=== PATIENT | male | born 1960 | race Caucasian/White ===

== ENCOUNTER 2024-01-13 10:41 | Outpatient (REF) | payer MEDICAID, SELFPAY ==
[2024-01-13 14:28] LABS: MANUAL DIFF FLAG NO
[2024-01-13 14:35] LABS: Basophils Percent Auto 0.5 % (0-2); Eosinophils Absolute Auto 0.2 X10*3/uL (0.0-0.4); Eosinophils Percent Auto 2.9 % (0-4); Hematocrit 44.2 % (42.0-52.0); Hemoglobin 15.3 g/dl (14.0-18.0); Imm Gran Abs Auto 0.04 X10*3/uL (0.00-0.03); Imm Gran Pct Auto 0.5 % (0.0-0.4); Lymphocytes Absolute Auto 2.6 X10*3/uL (1.2-4.9); Lymphocytes Percent Auto 31.7 % (20-40); Mean Corpuscular HGB Conc 34.6 g/dl (31.0-36.0); Mean Corpuscular Hemoglobin 30.2 pg (27.0-33.0); Mean Corpuscular Volume 87.2 fL (80.0-98.0); Mean Platelet Volume 11.9 fL (9.4-12.4); Monocytes Absolute Auto 0.7 X10*3/uL (0.1-1.2); Monocytes Percent Auto 8.2 % (2-11); Neutrophils Absolute Auto 4.7 x10*3/uL (2.0-8.3); Neutrophils Percent Auto 56.2 % (45-73); Platelet Count 218 X10*3/uL (160-400); Red Blood Count 5.07 X10*6/uL (4.60-5.80); White Blood Count 8.3 X10*3/uL (4.8-10.8)
[2024-01-13 14:55] LABS: Alanine Aminotransferase 33 U/L (0-40); Albumin Level 4.1 g/dL (3.5-5.0); Alkaline Phosphatase 64 U/L (39-117); Anion Gap 10 (12-20); Aspartate Amino Transferase 34 U/L (5-37); Bilirubin Total 1.1 mg/dL (0.0-1.0); Blood Urea Nitrogen 15 mg/dL (9-16); Calcium 9.4 mg/dL (8.4-10.2); Carbon Dioxide 24 mmol/L (22-29); Chloride 107 mmol/L (96-108); Cholesterol 169 mg/dL (<200); Estimated Glomerular Filt Rate > 60; Glucose Random 87 mg/dL (60-115); HDL Cholesterol 32 mg/dL (>40); LDL Cholesterol Calculated 111 mg/dL (<100); Sodium 137 mmol/L (135-145); Total Protein 7.4 g/dL (6.5-8.0); Triglycerides 131 mg/dL (<150)
[2024-01-13 15:14] LABS: TSH reflex Free T4 2.43 uIU/mL (0.32-4.0)
[2024-01-14 04:14] LABS: ~HepC Num1 13.55 S/CO (0.00-0.79); ~Hepatitis C Antibody Reactive (Nonreactive)
[2024-01-16 15:14] LABS: HCV Log PCR 6.88 Log IU/mL (NOT DETECTED); HepC Viral Load 7500000 IU/mL (NOT DETECTED)
== END 2024-01-13 10:42 | disposition home or self-care (01) ==
LOC: HO.CHCLDS 10:41
PROVIDERS: Visit Provider Internal Medicine
DX: I10 Essential (primary) hypertension (principal)
CPT/HCPCS: 36415; 80053; 80061; 84443; 85025; 86803; 87522

== ENCOUNTER 2024-02-02 09:51 | Outpatient (REF) | payer MEDICAID, SELFPAY ==
[2024-02-02 14:58] LABS: INTERNATIONAL NORM RATIO 0.9 (0.9-1.1)
[2024-02-03 08:24] LABS: Hepatitis A Antibody IgG Nonreactive (Nonreactive); ~Hepatitis A Antibody IgG 0.56 S/CO (0.00-0.99)
[2024-02-03 08:33] LABS: HBS Num1 0.71 mIU/mL (0-7.99); HBc Num1 6.97 S/CO (0.00-0.79); Hepatitis B Surface Antigen Negative (Negative); ~Hepatitis B Surface Antibody NONREACTIVE (Nonreactive)
[2024-02-03 09:36] LABS: HBc Num2 6.95 S/CO; HBc Num3 7.03 S/CO; Hepatitis B Core Antibody Reactive (Nonreactive)
[2024-02-04 09:03] LABS: Hepatitis B Core Antibody IgM NON-REACTIVE (NON-REACTIVE)
[2024-02-07 10:02] LABS: Hepatitis C Genotype 1a
[2024-02-11 14:18] LABS: FIB-ALT 25 U/L (9-46); FIB-Alpha-2-Macroglobulin 266 mg/dL (106-279); FIB-Apolipoprotein A1 122 mg/dL (94-176); FIB-GGT 37 U/L (3-70); FIB-Haptoglobin 55 mg/dL (43-212); FIB-Total Bilirubin 0.7 mg/dL (0.2-1.2); Liver Fibrosis Score 0.68; Liver Fibrosis Stage F3; Nec Inflam Act Grade A0-A1; Nec Inflam Act Score 0.18; Reference ID 5232622
== END 2024-02-02 09:52 | disposition home or self-care (01) ==
LOC: HO.CHCLDS 09:51
PROVIDERS: Visit Provider Internal Medicine
DX: B18.2 Chronic viral hepatitis C (principal)
CPT/HCPCS: 36415; 81596; 85610; 86704; 86705; 86706; 86708; 87340; 87902

== ENCOUNTER 2024-02-08 13:14 | Outpatient (AMB) | payer MEDICAID, SELFPAY ==
--- NOTE | 2024-02-08 13:29 | A.OFFVIS_ITS ---
Vital Signs 02/08/24 13:38 Height 6 ft 3 in Weight 237 lb BMI 29.6 BP 136/90 H Blood Pressure Location Rt brachial Position Sitting Pulse 76 Intake Visit Reasons: epidermal cyst of back Intake Note: Patient referred by pcp Dr. Paiz for epidermal inclusion cyst on back and under lt jawline. Both present for 2yrs. Patient c/o: patient squeezed it in the past but grew back. 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 There each increasing in size, become more symptomatic. He would like to have them removed. He has no such lesions elsewhere. Chart was reviewed and patient evaluated [facility] Medical History (Updated 02/08/24 @ 13:36 by VANESA Franz) Anxiety Depression HTN (hypertension) Social History (Updated 02/08/24 @ 13:37 by VANESA Franz) Patient Tobacco Use Status: Current everyday Tobacco user Cigarettes Per Day: 1 Physical Exam Vital Signs: Last Vital Signs Pulse 76 02/08/24 13:38 BP 136/90 H 02/08/24 13:38 BMI result Body Mass Index 29.6 Neck Other: Patient has a roughly 3 x 2 cm left mid neck sebaceous cyst.. No other cervical periclavicular adenopathy. Chest Other: Chest breath sounds bilaterally, HS 1 in 2 GI Other: Abdomen corpulent, benign Back/Spine/Pelvis Other: Patient has a roughly 4 x 4 cm right mid back sebaceous cyst Assessment & Plan Assessment & Plan (1) Sebaceous cyst: Code(s): L72.3 - Sebaceous cyst Category: Surgical Plan Because of the size and location of these 2 sebaceous cysts, and recommendation is to have these excised in an ambulatory surgical setting. Risks, benefits, alternatives of sebaceous cyst excision x2 reviewed with the patient and included but not limited to bleeding, infection, recurrence, numbness, pain, scarring, seroma, wound dehiscence and the patient wished to proceed. All questions answered. Arrangements made for this. Coding Level of Care Code New Pt Level 5 (62988) Diagnoses Sebaceous cyst L72.3
[2024-02-08 13:38] VITALS: BP 136/90; PULSE 76; BMI 29.6
== END 2024-02-08 13:41 | disposition home or self-care (01) ==
PROVIDERS: PCP Internal Medicine; Visit Provider Surgery
DX: L72.3 Sebaceous cyst (principal)
CPT/HCPCS: 99204

== ENCOUNTER → 2024-02-08 13:14 | Outpatient (BNVA) | payer MEDICAID, SELFPAY | PROVIDERS: PCP Internal Medicine; Visit Provider Surgery | DX: L72.3 Sebaceous cyst (principal) | CPT/HCPCS: 99202 ==

== ENCOUNTER 2024-03-08 08:02 | Outpatient (REF) | payer MEDICAID, SELFPAY | END 2024-03-08 08:03 | disposition home or self-care (01) | LOC: HO.US 08:02 | PROVIDERS: PCP Internal Medicine; Visit Provider Internal Medicine | DX: B18.2 Chronic viral hepatitis C (principal) | CPT/HCPCS: 76700; 76981 ==

== ENCOUNTER → 2024-03-08 08:04 | Outpatient (BNV) | payer MEDICAID, SELFPAY | PROVIDERS: PCP Internal Medicine; Visit Provider Radiology Diagnostic Radiology | DX: K76.89 Other specified diseases of liver (principal); N20.0 Calculus of kidney | CPT/HCPCS: 76700 ==

== ENCOUNTER 2024-04-04 13:43 | Outpatient (REF) | payer MEDICAID, SELFPAY ==
--- OUTSIDE RECORDS SUMMARY | 2024-04-04 18:26 | XMS_ITS | Encounter Summary ---
Author Organization [employer] Address [address] [place] [address] Care Team Providers Care Commercial Lines Insurance Agent Name Role Phone Samuel Paiz MD Primary Care Provider [phone] Reason for Visit * Reason Onset Date Comments Hep C Management 03/25/2024 Encounter Details Date Type Department Care Team ([facility] st Contact Info) Description 03/25/2024 Telephone [facility] [address] [place] [address] Naresh Newsome, RN [address] [place] [address] Hep C Management Social History Tobacco Use Types Packs/Day Years Used Date Smoking Tobacco: Some Days Cigarettes Smokeless Tobacco: Never Comments:Few cigarettes ever y other day: 2 packs a month. Depression Answer Date Recorded Patient Health Questionnaire-9 Score 8 05/22/2022 Housing Stability Answer Date Recorded What is your housing situation today? I have janetartur huff 01/04/[address] you li ve. Do you have problems with any of the following? None of the above 01/04/2024 Food Insecurity Answer Date Recorded Within the past 12 months, y ou worried that your food would run out before you got money to buy more: Never True 01/04/2024 Within the past 12 months,th e food you bought just didn't last and you didn't have enough money to get more: Never True Transportation Answer Date Recorded In the past 12 months, has l ack of transportation kept you from medical appts, meetings, work or from getting things needed for daily living? No 01/04/2024 Utilities Answer Date Recorded In the past 12 months, has t he electric, gas, oil or water company threatened to shut off services in your home? No 01/04/2024 Depression Answer Date Recorded Patient Health Questionnaire-2 Score 1 01/13/2024 Internet Access Answer Date Recorded Internet Access Q1 Yes 01/04/2024 Internet Access Q2 Not on file 01/04/2024 Sex and Gender Information Value Date Recorded Sex Assigned at Male 01/06/2022 10:25 AM EDT Legal Sex Male 10:25 AM EDT Gender Identity Male 01/06/2022 10:25 AM EDT Sexual Orientation Straight 01/06/2022 10 :25 AM EDT documented as of this encounter Miscellaneous Notes * Telephone Encounter - Naresh Newsome RN - 03/25/2024 2:31 PM EST US results are back and Hep C labs mostly completed. Claire: could you please coordinate to do Hep C scientific affairs manager? It looks like pt still needs HIV ag/ab and Hep B VL (due to isolated core positive). Ordered them now. Since pt was F3 and needs in person visit with Dr. Perla, perhaps these last labs could be drawn at the same time that he comes in. J Luis, could you please have pharmacist complete med rec? Thank you! documented in this encounter Plan of Treatment Upcoming Encounters Date Type Department Care Team (Late st Contact Info) Description 05/05/2024 9:15 AM EST Office Visit [facility] [address] [place] [address] Samuel Paiz MD [address] [place] [address] Scheduled Orders Name Type Priority Associated Diagnoses Orde r Schedule HIV-1/2 Antigen and Antibodies, Fourth Generation, with Reflexes Lab Routine Chronic hepatitis C without hepatic coma (CMS/HCC) Expected: 03/25/2024 (Approximate), Expires: 03/25/2025 Hepatitis B Virus DNA, Quantitative, Real-Time PCR Lab Routine Chronic hepatitis C without hepatic coma (CMS/HCC) Expected: 03/25/2024 (Approximate), Expires: 03/25/2025 documented as of this encounter Visit Diagnoses Diagnosis Chronic hepatitis C without hepatic coma (CMS/HCC)- Primary documented in this encounter Additional Health Concerns Assessment Noted Time PHQ-9 Depression Total Score: 8 05/23/19 23 11:19 AM EDT documented as of this encounter Care Teams Commercial Lines Insurance Agent Relationship Specialty Start Date End Date Samuel Paiz MD [address] [place] [id number] PCP - General Internal Medicine 12/02/12 documented as of this encounter
--- OUTSIDE RECORDS SUMMARY | 2024-04-04 18:26 | XMS_ITS | Clinical Summary ---
Author Organization [employer] Address [address] [facility] [address] [place] [address] Care Team Providers Care Licensed Sales Assistant Name Role Phone Samuel Paiz MD Primary Care Provider [phone] Allergies Active Allergy Reactions Criticality Noted Date Comments Acetaminophen 02/08/2013 Other Reaction(s): UPSET STOMACH Codeine 02/08/2013 Other reaction(s): UPSET STOMACH Medications buPROPion XL (Wellbutrin XL) 150 MG 24 hr tablet Take 150 mg by mouth in the morning. 03/20/19 23 Active amLODIPine (Norvasc) 10 MG tablet TAKE ONE TABLET DAILY 90 tablet 3 01/22/20 23 Active losartan (Cozaar) 100 MG tabletIndication s:Essential (primary) hypertension TAKE ONE TABLET DAILY 90 tablet 1 09/11/19 24 Active IBU 800 MG tablet TAKE ONE TABLET BY MOUTH THREE TIMES DAILY WITH FOOD. 60 tablet 2 01/15/20 24 Active FLUoxetine (PROzac) 40 MG capsule Take 40 mg by mouth Once per day. 12/31/19 24 Active FLUoxetine (PROzac) 20 MG capsule Take 20 mg by mouth Once per day. With 40 mg capsule Active diphenhydrAMINE (BENADryl) 25 MG capsule Take 25 mg by mouth if needed at bedtime for sleep. Active Hydrocortisone Acetate 2.5 % creamIndications :Intertrigo To apply to the affected area 2 times a day x 2 weeks. 28 g 05/23/19 23 025 Discontinued(Me d list cleanup (will not trigger notification to Pharmacy)) Active Problems Problem Noted Date Diagnosed Date Primary insomnia 04/15/2018 Depressive disorder 03/21/2015 Hypertensive disorder 03/21/2015 Encounters Date Type Department Care Team Description 04/04/2024 1:30 PM EST Office Visit [address] [address] Mary Riojas MD Encounter for immunization (Primary Dx); Chronic hepatitis C without hepatic coma (CMS/HCC) 04/04/2024 Travel 03/29/2024 11:30 AM EST Telemedicine [address] [address] Chrissy Grant RN Chronic hepatitis C without hepatic coma (CMS/HCC) 03/29/2024 Travel 03/25/[address] [address] Naresh Newsome, JE Hep C Management 03/08/2024 Orders Only [facility] [address] [place] [address] Samuel Paiz MD 02/12/[address] [address] Naresh Newsome, RN Hep C Management 02/02/2024 Orders Only [facility] [address] [place] [address] Samuel Paiz MD 02/02/[address] [address] Samuel Paiz MD 01/29/[address] [address] Naresh Newsome, RN Hep C Referral 01/18/2024 Orders Only [facility] [address] [place] [address] Samuel Paiz MD Chronic hepatitis C without hepatic coma (CMS/HCC) (Primary Dx) 01/15/2024 Telephone [facility] [address] [place] [phone] Samuel Paiz MD 01/15/2024 Orders Only [facility] [address] [place] [address] Samuel Piaz MD 01/15/2024 Refill [facility] [address] [place] [address] Samuel Paiz MD 01/13/2024 10:00 AM EST Office Visit [facility] [address] [place] [address] Samuel Paiz MD Depressive disorder (Primary Dx); Encounter for immunization; Primary hypertension; Annual physical exam; Epidermoid cyst 01/13/2024 Orders Only [facility] [address] [place] [address] Samuel Paiz MD 01/13/2024 Travel 01/06/2024 Patient Outreach [facility] [address] [place] [address] Samuel Paiz MD Pre-visit Planning (SDOH screening completed on 01/04/2024./) 01/04/2024 Patient Outreach [facility] [address] [place] [address] Samuel Paiz MD Pre-visit Planning ((SDOH screening negative tobacco screening positive)) from Last 3 Months Immunizations Name Administration Dates Next Due Influenza injectable quadriv alent IIV4 with preservative 12/07/2017,11/28/2016,12/25/2015,2014 Influenza injectable quadriv alent preservative free 11/24/2022,12/17/2021,12/26/2020,2019 Influenza, Split (incl. merari fied surface antigen) 03/15/2013 Influenza, seasonal, injecta ble, preservative free 01/13/2024 Pfizer Covid-19 Vaccine 12+ 04/04/2024, Tdap 08/26/2013 Family History Medical History Relation Name Comments Hypertension Father's Brother Diabetes type II Mother Hypertension Mother Relation Name Status Comments Father's Brother Mother Social History Tobacco Use Types Packs/Day Years Used Date Smoking Tobacco: Some Days Cigarettes Smokeless Tobacco: Never Tobacco Cessation:Ready to Q uit: Not Asked; Counseling Given: Not Answered Comments:Few cigarettes every other day: 2 packs a month. Depression Answer Date Recorded Patient Health Questionnaire-9 Score 8 05/22/2022 Housing Stability Answer Date Recorded What is your housing situation today? I have janet huff 01/04/[address] you [...] Orientation Straight 01/06/2022 10 :25 AM EDT Last Filed Vital Signs Vital Sign Reading Time Taken Comments Blood Pressure 160/98 04/04/2024 1:17 PM EST Pulse 74 04/04/2024 1:17 PM EST Temperature 36.2 ??C (97.2 ??F) 04/04/2024 1:17 PM ES T Respiratory Rate 20 04/04/2024 1:17 PM EST Oxygen Saturation 98% 12/31/2022 10:09 AM EDT Inhaled Oxygen Concentration - - Weight 113 kg (249 lb 0.2 oz) 04/04/2024 1:17 PM EST Height 190.5 cm (6' 3 ) 01/13/2024 9:56 AM EST Body Mass Index 31.12 01/13/2024 9:56 AM EST Plan of Treatment Upcoming Encounters Date Type Department Care Team (Late st Contact Info) Description 05/05/2024 9:15 AM EST Office Visit [facility] [address] [place] [address] Samuel Paiz MD [address] [place] [address] Health Maintenance Due Date Last Done Comments CT Colonography 1960 Colonoscopy 1960 Colorectal Cancer Screening 1960 FIT DNA/Cologuard 1960 FIT 1960 FOBT 1960 Sigmoidoscopy 1960 Pneumococcal Vaccine: Pediatrics (0 to 5 Years) and At-Risk Patients (6 to 64 Years) (1 of 2 - PCV) 1968 Alcohol/Substance Use Screening 1974 Hepatitis A Vaccines (1 of 2 - Risk 2-dose series) 1981 Zoster Vaccines (1 of 2) 2012 Hepatitis B Vaccines (1 of 3 - Risk 3-dose series) 2022 RSV Patients and Patients Aged 60 years or older (1 - Risk 60-74 years 1-dose series) 2022 DTaP/Tdap/Td Vaccines (2 - Td or Tdap) 08/27/2023 08/26/2013 SDOH Screening 01/03/2025 01/04/2024 Depression Screening 01/12/2025 01/13/2024, 05/23/19 HIV Screening 01/12/2025 Postponed from 1960 (Patient Refused) Tobacco Screening 04/04/2025 04/04/2024 Lipid Panel 01/12/2029 01/13/2024 Influenza Vaccine Completed 01/13/2024, , 12/17/2021, Additional history exists COVID-19 Vaccine Completed 04/04/2024, , 12/17/2021, Additional history exists HIB Vaccines Aged Out No longer eligi ble based on patient's age to complete this topic HPV Vaccines Aged Out No longer eligi ble based on patient's age to complete this topic IPV Vaccines Aged Out No longer eligi ble based on patient's age to complete this topic Meningococcal Vaccine Aged Out No shannan aguilar eligible based on patient's age to complete this topic RSV under 20 months Aged Out No longe r eligible based on patient's age to complete this topic Rotavirus Vaccines Aged Out No longer eligible based on patient's age to complete this topic Procedures Procedure Name Priority Date/Time Associated Diagnosis Comments US ABDOMEN COMPLETE WITH ELASTOGRAPHY Routine 03/08/2024 8:11 AM EST LIVER FIBROSIS, FIBROTEST ACTITEST PANEL Routine 02/02/2024 9:52 AM EST HEPATITIS C VIRAL RNA GENOTYPE, LIPA Routine 02/02/2024 9:52 AM EST HEPATITIS B CORE ANTIBODY (IGM) Routine 02/02/2024 9:52 AM EST HEPATITIS A ANTIBODY, TOTAL Routine 02/02/2024 9:52 AM EST PROTHROMBIN TIME-INR Routine 02/02/2024 9:52 AM EST HEPATITIS B SURFACE ANTIGEN, EIA Routine 02/02/2024 9:52 AM EST Chronic hepatitis C without hepatic coma (CMS/HCC) HEPATITIS B CORE AB TOTAL Routine 02/02/2024 9:52 AM EST Chronic hepatitis C without hepatic coma (CMS/HCC) HEPATITIS B SURFACE ANTIBODY, QUALITATIVE Routine 02/02/2024 9:52 AM EST Chronic hepatitis C without hepatic coma (CMS/HCC) HEPATITIS C VIRAL RNA, QUANTITATIVE, REAL-TIME PCR Routine 01/13/2024 10:43 AM EST HEPATITIS C AB W/REFL TO HCV RNA, QN, PCR Routine 01/13/2024 10:43 AM EST Primary hypertension TSH W/REFLEX TO FT4 Routine 01/13/2024 1 0:43 AM EST Primary hypertension LIPID PANEL, STANDARD Routine 01/13/2024 10:43 AM EST Primary hypertension COMPREHENSIVE METABOLIC PANEL Routine 01/13/2024 10:43 AM EST Primary hypertension CBC WITH AUTO DIFFERENTIAL Routine 01/13/2024 10:43 AM EST Primary hypertension from Last 3 Months Results * US Abdomen Comp w elastography (03/08/2024 8:11 AM EST) Anatomical Region Laterality Modality Abdomen Ultrasound 03/08/2024 8:11 AM EST Narrative 03/15/2024 2:23 PM EST ? [facility] ?[address] ?[place] [address] ? Ultrasound Report ? Signed ? Patient: Glen Burt ?MR#: [id number] ? : 1960 ?Acct:[id number] ? Age/Sex: 63 / M ?ADM Date: 03/08/24 ? Loc: HO.US ? Attending Dr: Samuel Paiz MD ? Ordering Physician: Samuel Paiz MD ?? Date of Service: 03/08/24 ?? Procedure(s): US abdomen comp w elastography ?? Accession Number(s): [id number] ? cc: Samuel Paiz MD ? EXAMINATION: ??US ABDOMEN COMPLETE WITH LIVER ELASTOGRAPHY ? HISTORY: Hepatitis C; Fibrosure F3 ? TECHNIQUE: Real-time grayscale ultrasound imaging of the abdomen was ?? performed and images were reviewed. ? COMPARISON: There are no prior studies for comparison. ? FINDINGS: ?? Liver: The liver is normal in size and demonstrates homogeneous ?? echotexture. ??There is a 4 mm cyst in the left lobe. No solid mass is ?? identified. No intrahepatic biliary ductal dilatation is identified. ? There is normal hepatopedal flow in the portal vein. ? Ultrasound elastography of the liver was performed with 10 separate ?? measurements of the liver parenchyma with the patient in the supine ?? position. ??Measurements were obtained approximately 2 cm below ?? Juan's capsule and perpendicular to the capsule. ??Images are of ?? satisfactory quality. ? The median liver stiffness is 1.36 m/s. ?? The interquartile range/median (IQR/median) is 0.09. ? Gallbladder and biliary tree: There are echogenic foci along the ?? gallbladder wall which may represent adenomyomatosis. The gallbladder ?? is otherwise unremarkable, without evidence of calculi, wall ?? thickening, or pericholecystic fluid. ??There is no sonographic Green ?? sign. ??The common bile duct is normal in caliber measuring 5 mm. ? Kidneys: ??The right kidney measures 12.7 cm in length. The left kidney ?? measures 12.8 cm in length. There is a 3.1 x 3.5 x 2.3 cm cyst at the ?? upper pole of the right kidney and a 1.5 x 1.3 x 1.6 cm cyst in the ?? interpolar region. ??The kidneys are otherwise unremarkable, without ?? evidence of solid masses, hydronephrosis, or calculi. ? Pancreas: The pancreatic head, neck, and body are unremarkable. The ?? pancreatic tail is obscured by bowel gas. ? Spleen: The spleen is normal in size and contour, measuring 11.3 cm in ?? length. ? Abdominal aorta and inferior vena cava: The visualized portions of the ?? abdominal aorta and inferior vena cava are normal in caliber. ? There is no free fluid in the abdomen. ? US/US abdomen comp w elastography ?? IMPRESSION: ? The median liver stiffness is 1.36 m/s, and the IQR/median value is ?? 0.09. ??This is reliable as the value is < 0.15 (15%). ?? Findings are indicative of a low elastography value which rules out ?? advanced chronic liver disease in asymptomatic patients. ? REFERENCE: ?? Society of Radiologists in Ultrasound Liver Stiffness Thresholds (2020): ? LIVER STIFFNESS THRESHOLDS: ?? *Liver Stiffness equal or less than 1.3 m/s: ??High probability of being ?? normal. ?? *Liver Stiffness ??less than 1.7 m/s: ??In the absence of other known ?? clinical signs, rules out compensated advanced chronic liver disease. ?? *Liver Stiffness 1.7-2.1 m/s: ??Suggestive of compensated advanced ?? chronic liver disease but need further test for confirmation. ?? *Liver Stiffness over 2.1 m/s: ??Rules in compensated advanced chronic ?? liver disease. ?? *Liver Stiffness over 2.4 m/s: ??Suggestive of clinically significant ?? portal hypertension. ? QUALITY OF DATA SET: ?? *IQR/Median value equal or less than 0.15 implies a quality data set. ?? *IQR/Median value over 0.15 implies a poor quality data set. ? SIGNIFICANT CHANGE FROM PRIOR EXAM: ?? Significant change if liver stiffness measurement is 10% or greater ?? from prior exam. ? OTHER CONSIDERATIONS: ?? The stage of liver fibrosis may be overestimated in the setting of ?? acute hepatitis, liver inflammation, elevated liver function tests, ?? hepatic vascular congestion, obstructive cholestasis, non-fasting ?? state, and infiltrative diseases such as amyloidosis and lymphoma. ??In ?? some patients with NAFLD, the liver stiffness thresholds for ?? compensated advanced chronic liver disease may be lower. ??In causes ?? other than viral hepatitis and NAFLD, liver stiffness thresholds are ?? not well established. ? Electronically signed by: ??Aldair Hyman MD ??03/15/2024 02:20 PM EST ? Dictated By: ?Aldair Hyman MD ? Signed By: ?<Electronically signed by Aldair Hyman MD in OV> ?03/15/24 1420 ? DD/ 08 ? TD/TT: 03/08/[address]28 ? District Administrator: ? Procedure Note Ag, Image - 03/15/2024 [place] [address] Ultrasound Report Signed Patient: Glen Burt TMR#: [id number] : 1960Acct:[id number] Age/Sex: 63 / MADM Date: 03/08/24 Loc: HO.US Attending Dr: Samuel Paiz MD Ordering Physician: Samuel Paiz MD Date of Service: 03/08/24 Procedure(s): US abdomen comp w elastography Accession Number(s): [id number] cc: Samuel Paiz MD EXAMINATION: US ABDOMEN COMPLETE WITH LIVER ELASTOGRAPHY HISTORY: Hepatitis C; Fibrosure F3 TECHNIQUE: Real-time grayscale ultrasound imaging of the abdomen was performed and images were reviewed. COMPARISON: There are no prior studies for comparison. FINDINGS: Liver: The liver is normal in size and demonstrates homogeneous echotexture. There is a 4 mm cyst in the left lobe. No solid mass is identified. No intrahepatic biliary ductal dilatation is identified. There is normal hepatopedal flow in the portal vein. Ultrasound elastography of the liver was performed with 10 separate measurements of the liver parenchyma with the patient in the supine position. Measurements were obtained approximately 2 cm below Juan's capsule and perpendicular to the capsule. Images are of satisfactory quality. The median liver stiffness is 1.36 m/s. The interquartile range/median (IQR/median) is 0.09. Gallbladder and biliary tree: There are echogenic foci along the gallbladder wall which may represent adenomyomatosis. The gallbladder is otherwise unremarkable, without evidence of calculi, wall thickening, or pericholecystic fluid. There is no sonographic Green sign. The common bile duct is normal in caliber measuring 5 mm. Kidneys: The right kidney measures 12.7 cm in length. The left kidney measures 12.8 cm in length. There is a 3.1 x 3.5 x 2.3 cm cyst at the upper pole of the right kidney and a 1.5 x 1.3 x 1.6 cm cyst in the interpolar region. The kidneys are otherwise unremarkable, without evidence of solid masses, hydronephrosis, or calculi. Pancreas: The pancreatic head, neck, and body are unremarkable. The pancreatic tail is obscured by bowel gas. Spleen: The spleen is normal in size and contour, measuring 11.3 cm in length. Abdominal aorta and inferior vena cava: The visualized portions of the abdominal aorta and inferior vena cava are normal in caliber. There is no free fluid in the abdomen. US/US abdomen comp w elastography IMPRESSION: The median liver stiffness is 1.36 m/s, and the IQR/median value is 0.09. This is reliable as the value is < 0.15 (15%). Findings are indicative of a low elastography value which rules out advanced chronic liver disease in asymptomatic patients. REFERENCE: Society of Radiologists in Ultrasound Liver Stiffness Thresholds (2019): LIVER STIFFNESS THRESHOLDS: *Liver Stiffness equal or less than 1.3 m/s: High probability of being normal. *Liver Stiffness less than 1.7 m/s: In the absence of other known clinical signs, rules out compensated advanced chronic liver disease. *Liver Stiffness 1.7-2.1 m/s: Suggestive of compensated advanced chronic liver disease but need further test for confirmation. *Liver Stiffness over 2.1 m/s: Rules in compensated advanced chronic liver disease. *Liver Stiffness over 2.4 m/s: Suggestive of clinically significant portal hypertension. QUALITY OF DATA SET: *IQR/Median value equal or less than 0.15 implies a quality data set. *IQR/Median value over 0.15 implies a poor quality data set. SIGNIFICANT CHANGE FROM PRIOR EXAM: Significant change if liver stiffness measurement is 10% or greater from prior exam. OTHER CONSIDERATIONS: The stage of liver fibrosis may be overestimated in the setting of acute hepatitis, liver inflammation, elevated liver function tests, hepatic vascular congestion, obstructive cholestasis, non-fasting state, and infiltrative diseases such as amyloidosis and lymphoma. In some patients with NAFLD, the liver stiffness thresholds for compensated advanced chronic liver disease may be lower. In causes other than viral hepatitis and NAFLD, liver stiffness thresholds are not well established. Electronically signed by: Aldair Hyman MD 03/15/2024 02:20 PM EST Dictated By: Aldair Hyman MD Signed By: <Electronically signed by Aldair Hyman MD in OV> 03/15/24 1420 DD/ 0811 TD/TT: 03/08/24 0829 District Administrator: us Samuel Paiz MD IM US PROCEDURES Final Res ult * Liver Fibrosis (HCV), FibroTest-ActiTest Panel (02/02/2024 9:52 AM EST) Liver Fibrosis Score 0.68 [facility] Liver Fibrosis Stage F3 [facility] Liver Fibrosis Interpretation SEE NOTE [facility] Comment:advanced fibrosisFib ro Test Score (f) Metavir Score f>=0 and f<=0.21 : F0 (no fibrosis)f>0.21 and f<=0.27 : F0-F1 (no fibrosis)f>0.27 and f<=0.31 : F1 (minimal fibrosis)f>0.31 and f<=0.48 : F1-F2 (minimal fibrosis)f>0.48 and f<=0.58 : F2 (moderate fibrosis)f>0.58 and f<=0.72 : F3 (advanced fibrosis)f>0.72 and f<=0.74 : F3-F4 (advanced fibrosis)f>0.74 and f<=1.00 : F4 (severe fibrosis) Nec Inflam Act Score 0.18 [facility] Nec Inflam Act Grade A0-A1 [facility] Nec Inflam Act Interpretation SEE NOTE [facility] Comment:no activityActiTest Score (a) Metavir Score a>=0 and a<=0.17 : A0 (no activity)a>0.17 and a<=0.29 : A0-A1 (no activity)a>0.29 and a<=0.36 : A1 (minimal activity)a>0.36 and a<=0.52 : A1-A2 (minimal activity)a>0.52 and a<=0.60 : A2 (significant activity)a>0.60 and a<=0.62 : A2-A3 (significant activity)a>0.62 and a<=1.00 : A3 (severe activity) NUC-Xpbzv-9-Macroglo bulin 266 106 - 279 mg/dL [facility] FIB-Haptoglobin 55 43 - 212 mg/dL [facility] FIB-Apolipoprotein A1 122 94 - 176 mg/dL [facility] FIB-Total Bilirubin 0.7 0.2 - 1.2 mg/dL [facility] FIB-GGT 37 3 - 70 U/L [facility] FIB-ALT 25 9 - 46 U/L [facility] Reference ID [id number] [facility] Footnote SEE NOTE [facility] Comment: The reliability of results is dependent on compliance withthe preanalytical and analytical conditions recommended byBioPredictive. The tests have to be deferred for: acutehemolysis, acute hepatitis, acute inflammation, extrahepatic cholestasis. The advice of a specialist should besought for interpretation in chronic hemolysis and Gilbert'ssyndrome. The test interpretation is not validated in livertransplant patients. Isolated extreme values of one of thecomponents should lead to caution in interpreting theresults. In case of discordance between a biopsy result inessa test, it is recommended to seek the advice of aspecialist. The causes of these discordances could be due toa flaw of the test or to a flaw in the biopsy: i.e. a liverbiopsy has a 33% variability rate for one fibrosis stage.FibroTest is interpretable for chronic hepatitis B and C,alcoholic and non alcoholic steatosis. ActiTest isinterpretable for chronic hepatitis B and C.The performance characteristics have been determined by[employer] [facility]. Ithas not been cleared or approved by the U.S. Food and DrugAdministration. Performance characteristics refer to theanalytical performance of the test.[employer], [employer], the associated logo, [employer] and all associated [employer] oshea are theregistered trademarks of [employer]. All third partymarks - (R) and (TM) - are the property of their respectiveowners. (C) 1125-2776 [employer]. Allrights reserved.THIS TEST WAS PERFORMED AT:[employer] [id number] [facility], [place] ??[id number] MARINO MD,PHD,JORGE 02/02/2024 9:52 AM EST 02/02/2024 2:29 PM EST us Samuel Paiz MD LAB BLOOD ORDERABLES Final Result [facility] [address] [place] [phone] * Hepatitis A Antibody, Total (02/02/2024 9:52 AM EST) Hepatitis A Antibody IgG Nonreactive Nonreactive [facility] 02/02/2024 9:52 AM EST 02/02/2024 2:29 PM EST us Samuel Paiz MD LAB BLOOD ORDERABLES Final Result Performing Organization Address [facility] Co de Phone Number [facility] [address] [place] [address] [phone] * Hepatitis B Core??Antibody (IgM) (02/02/2024 9:52 AM EST) Hepatitis B Core Antibody IgM NON-REACTI VE NON-REACTI VE [facility] Comment:For additional infor matcrystal, please refer tohttp://education.[employer]/faq/PLI464(This link is being provided for informational/educational purposes only.)THIS TEST WAS PERFORMED AT:[employer] [place] [id number] HAYNES MD 02/02/2024 9:52 AM EST 02/02/2024 2:29 PM EST us Samuel Paiz MD LAB BLOOD ORDERABLES Final Result Performing Organization Address [facility] Co de Phone Number [facility] [address] [place] [phone] * Hepatitis B surface antigen, EIA (02/02/2024 9:52 AM EST) Pathologist [facility] Hepatitis B Surface Ag Negative Negative [facility] Blood Venous blood specimen / Unknown 02/02/2024 9:52 AM EST 02/02/2024 2:29 PM EST Samuel Paiz MD LAB BLOOD ORDERABLES Final Result Performing Organization Address [facility] Co de Phone Number [facility] [address] [place] [address] [phone] * Hepatitis B Core Antibody, Total (02/02/2024 9:52 AM EST) Hepatitis B Core Antibody Reactive Nonreactive [facility] Comment:Presumptive evidence of anti-HBc. Blood Venous blood specimen / Unknown 02/02/2024 9:52 AM EST 02/02/2024 2:29 PM EST Samuel Paiz MD LAB BLOOD ORDERABLES Final Result Performing Organization Address [facility] de Phone Number [facility] [address] [place] [phone] * Hepatitis C Viral RNA, Genotype, LiPA (02/02/2024 9:52 AM EST) Pathologist [facility] Hepatitis C Genotype 1a [facility] Comment:The method used in t his test is RT-PCR and reversehybridization (Line Probe) of the 5' UTR and coreregion of the HCV genome.The analytical performance characteristics of thisassay have been determined by [employer] [facility] [employer], [place]. The modificationshave not been cleared or approved by the FDA. Thisassay has been validated pursuant to the CLIAregulations and is used for clinical purposes.For additional information, please refer tohttp://education.[employer]/faq/HCVGenotyping(This link is being provided for informational/educational purposes only.)THIS TEST WAS PERFORMED AT:[id number] [place], [place] [id number] WHALEY MD,PHD 02/02/2024 9:52 AM EST 02/02/2024 2:29 PM EST us Samuel Paiz MD LAB BLOOD ORDERABLES Final Result Performing Organization Address [facility] Co de Phone Number [facility] [address] [place] [phone] * Hepatitis B Surface Antibody, Qualitative (02/02/2024 9:52 AM EST) [facility] ~Hepatitis B Surface Antibody NONREACTIVE Nonreactive [facility] Comment:Nonreactive: < 8.00 mIU/mL Blood Venous blood specimen / Unknown 02/02/2024 9:52 AM EST 02/02/2024 2:29 PM EST us Samuel Paiz MD LAB BLOOD ORDERABLES Final Result Performing Organization Address [facility] Co de Phone Number [facility] [address] [place] [phone] * (ABNORMAL) Prothrombin Time-INR (02/02/2024 9:52 AM EST) Prothrombin Time 10.0(L) 10.9 - 12.4 SEC [facility] INTERNATIONAL NORM RATIO 0.9 0.9 - 1.1 [facility] Comment:INTERNATIONAL NORMAL IZED RATIO (INR) REFERENCE RANGES Reference RangeFor patients not on anticoagulant therapy: 0.9 - 1.1INR ranges for oral anticoagulanttherapy:For prevention and treatment of venous thrombosis and pulmonary embolism: 2.0 - 3.0For acute myocardial infarction with aspirin therapy: 2.0 - 3.0For acute myocardial infarction without aspirin therapy: 3.0 - 4.0For patients with mechanical prosthetic heart valves: 2.5 - 3.5 02/02/2024 9:52 AM EST 02/02/2024 2:29 PM EST us Samuel Paiz MD LAB BLOOD ORDERABLES Final Result Performing Organization Address [facility] Co de Phone Number [facility] [address] [place] [phone] * TSH W/Reflex to FT4 (01/13/2024 10:43 AM EST) TSH reflex Free T4 2.43 0.32 - 4.0 uIU/mL [facility] Blood Venous blood specimen / Unknown 01/13/2024 10:43 AM EST 01/13/2024 2:18 PM EST us Samuel Paiz MD LAB BLOOD ORDERABLES Final Result Performing Organization Address City/[facility]/ZIP Co de Phone Number [facility] [address] [place] [phone] * (ABNORMAL) Hepatitis C Viral RNA, Quantitative, Real-Time PCR (01/13/2024 10:43 AM EST) [facility] Hepatitis C Viral Load 2657552(A ) NOT DETECTED IU/mL [facility] HCV Log PCR 6.88(A) NOT DETECTED Log IU/mL [facility] Comment:For additional infor prema, please refer tohttp://education.[employer]/faq/ZBT72n8(This link is being provided for informational/educational purposes only.)THIS TEST WAS PERFORMED AT:[employer] [place] [phone] HAYNES MD 01/13/2024 10:4 3 AM EST 01/14/2024 7:52 AM EST Samuel Paiz MD LAB BLOOD ORDERABLES Final Result [facility] [address] [place] [phone] * (ABNORMAL) CBC auto differential (01/13/2024 10:43 AM EST) [facility] White Blood Count 8.3 4.8 - 10.8 X10*3/uL [facility] Red Blood Count 5.07 4.60 - 5.80 X10*6/uL [facility] Hemoglobin 15.3 14.0 - 18.0 g/dl [facility] Hematocrit 44.2 42.0 - 52.0 % [facility] Mean Corpuscular Volume 87.2 80.0 - 98.0 fL [facility] Mean Corpuscular Hemoglobin 30.2 27.0 - 33.0 pg [facility] Mean Corpuscular HGB Conc 34.6 31.0 - 36.0 g/dl [facility] Red Cell Distribution Width 13.0 11.0 - 16.0 % [facility] Platelet Count 218 160 - 400 X10*3/uL [facility] Mean Platelet Volume 11.9 9.4 - 12.4 fL [facility] Neutrophils Percent Auto 56.2 45 - 73 % [facility] Imm Gran Pct Auto 0.5(H) 0.0 - 0.4 % [facility] Lymphocytes Percent Auto 31.7 20 - 40 % [facility] Monocytes Percent Auto 8.2 2 - 11 % [facility] Eosinophils Percent Auto 2.9 0 - 4 % [facility] Basophils Percent Auto 0.5 0 - 2 % [facility] NRBC Pct Auto 0.0 0.0 - 0.2 /100WBC [facility] Neutrophils Absolute Auto 4.7 2.0 - 8.3 x10*3/uL [facility] Imm Gran Abs Auto 0.04(H) 0.00 - 0.03 X10*3/uL [facility] Lymphocytes Absolute Auto 2.6 1.2 - 4.9 X10*3/uL [facility] Monocytes Absolute Auto 0.7 0.1 - 1.2 X10*3/uL [facility] Eosinophils Absolute Auto 0.2 0.0 - 0.4 X10*3/uL [facility] Basophils Absolute Auto 0.0 0.0 - 0.2 X10*3/uL [facility] NRBC Abs Auto 0.000 0.0 - 0.012 X10*3/uL [facility] Blood Venous blood specimen / Unknown 01/13/2024 10:43 AM EST 01/13/2024 2:18 PM EST us Samuel Paiz MD LAB BLOOD ORDERABLES Final Result [facility] [address] [place] [phone] * (ABNORMAL) Hepatitis C Antibody with Reflex to HCV, RNA, Quantitative, Real- Time PCR (01/13/2024 10:43 AM EST) Hepatitis C Antibody Reactive( A) Nonreactive [facility] Comment:Presumptive evidence of antibodies to HCV. Blood Venous blood specimen / Unknown 01/13/2024 10:43 AM EST 01/13/2024 2:18 PM EST Samuel Paiz MD LAB BLOOD ORDERABLES Final Result Performing Organization Address [facility] Co de Phone Number [facility] [address] [place] [phone] * (ABNORMAL) Lipid Panel, Standard (01/13/2024 10:43 AM EST) Triglycerides 131 <150 mg/dL [facility] Comment:Desirable Triglyceri de: less than 150 mg/dLBorderline High Triglyceride 150-199 mg/dLHigh Triglyceride: 200-499 mg/dLVery High Triglyceride: greater than or equal to 5OO mg/dL Cholesterol 169 <200 mg/dL [facility] Comment:Desirable Cholestero l: less than 200 mg/dLBorderline High Cholesterol: 200-239 mg/dLHigh Cholesterol: greater than 239 mg/dL LDL Cholesterol Calculated 111(H) <100 mg/dL [facility] Comment:Desirable LDL: less than 100 mg/dLNear Optimal/Above Optimal LDL: 110- 129 mg/dLBorderline High LDL: 130-159 mg/dLHigh LDL: 160-189 mg/dLVery High LDL: greater than or equal to 190 mg/dL HDL Cholesterol 32(L) >40 mg/dL [facility] Comment:Desirable HDL: great er than 40 mg/dL Note: This HDL assay may give artificially low results in patients with liver disease. Blood Venous blood specimen / Unknown 01/13/2024 10:43 AM EST 01/13/2024 2:18 PM EST us Samuel Paiz MD LAB BLOOD ORDERABLES Final Result Performing Organization Address [facility]/ZIP Co de Phone Number [facility] [address] [place] [phone] * (ABNORMAL) Comprehensive Metabolic Panel (01/13/2024 10:43 AM EST) Sodium 137 135 - 145 mmol/L [facility] Potassium 4.0 3.3 - 5.1 mmol/L [facility] Chloride 107 96 - 108 mmol/L [facility] Carbon Dioxide 24 22 - 29 mmol/L [facility] Anion Gap 10(L) 12 - 20 [facility] Urea Nitrogen (BUN) 15 9 - 16 mg/dL [facility] Creatinine, Serum 0.77 0.5 - 1.4 mg/dL [facility] Estimated Glomerular Filt Rate >60 [facility] Comment:NOTE: For -Am erican individuals, multiply the result by 1.210.Chronic Kidney Disease: Estimated GFR < 60 mL/min/1.13s8Zdshwk Kidney Disease: Estimated GFR < 15 mL/min/1.73m2 Glucose 87 60 - 115 mg/dL [facility] Calcium 9.4 8.4 - 10.2 mg/dL [facility] Bilirubin, Total 1.1(H) 0.0 - 1.0 mg/dL [facility] Aspartate Amino Transferase 34 5 - 37 U/L [facility] Alanine Aminotransferase 33 0 - 40 U/L [facility] Total Protein 7.4 6.5 - 8.0 g/dL [facility] Albumin Level 4.1 3.5 - 5.0 g/dL [facility] Alkaline Phosphatase 64 39 - 117 U/L [facility] Blood Venous blood specimen / Unknown 01/13/2024 10:43 AM EST 01/13/2024 2:18 PM EST us Samuel Paiz MD LAB BLOOD ORDERABLES Final Result [facility] [address] [place] [phone] from Last 3 Months Insurance [facility] C3 Care Teams Licensed Sales Assistant Relationship Specialty Start Date End Date Samuel Paiz MD [address] [place] [phone] PCP - General Internal Medicine 12/02/12
--- OUTSIDE RECORDS SUMMARY | 2024-04-04 18:26 | XMS_ITS | Encounter Summary ---
Author Organization [employer] Address [address] [place] [address] Care Team Providers Care Baggage Screener Name Role Phone Samuel Paiz MD Primary Care Provider [phone] Encounter Details Date Type Department Care Team (Late st Contact Info) Description 03/29/2024 11:30 AM EST Telemedicine [facility] [address] [place] [address] Chrissy Grant RN [address] [place] [address] Chronic hepatitis C without hepatic coma (CMS/HCC) Social History Tobacco Use Types Packs/Day Years [...] AM EDT documented as of this encounter Progress Notes * Chrissy Grant RN - 03/29/2024 11:30 AM EST RN spoke with pt via telephone for Hep C diabetologist. Pt diagnosed: 01/13/24 Diagnostics: HCV genotype: 1a (01/29/24) HCV viral load: [id number] (01/13/24) Fibrosis score: F3 (01/29/24) Hep A status: Nonreactive (02/02/24) Hep B status: Core Ab total (02/02/24) Pt will have Hep B DNA Quant on 04/04/24 HIV: Pt will have drawn 04/04/24 PT/INR: 10.0/0.9 (02/02/24) CBC, GFR, LFTs completed: 01/13/24 test: N/A Ultrasound completed: 03/15/24 Previous Hep C treatment: None Substance use history: Denies Pt sexually active seldom , discloses Hep C status. Does not use condoms. He sys partner is negative . Discussed safer sex with patient, pt encouraged to use condoms with partner prior to completion of treatment. Pt will get HIV, and Hep B Quant on day of appt with Dr. Perla. Current medications reviewed. Hep C Intake complete, pt reports understanding of treatment plan and importance of medication adherence. Pt is motivated to begin treatment. Plan: Message sent to Pharmacy to do med rec. Appointment with Dr. Perla: 04/04/24 documented in this encounter Plan of Treatment Upcoming Encounters Date Type Department Care Team (Late st Contact Info) Description 05/05/2024 9:15 AM EST Office Visit [facility] MED & PEDS [address] [place] [address] Samuel Paiz MD [address] [place] [address] documented as of this encounter Visit Diagnoses Diagnosis Chronic hepatitis C without hepatic coma (CMS/HCC) documented in this encounter Additional Health Concerns Assessment Noted Time PHQ-9 Depression Total Score: 8 05/23/19 23 11:19 AM EDT documented as of this encounter Care Teams Baggage Screener Relationship Specialty Start Date End Date Samuel Paiz MD [address] [place] [address] PCP - General Internal Medicine 12/02/12 documented as of this encounter
--- OUTSIDE RECORDS SUMMARY | 2024-04-04 18:26 | XMS_ITS | Encounter Summary ---
Author Organization [employer] Address [address] [place] [address] Care Team Providers Care Geophysics Professor Name Role Phone Samuel Paiz MD Primary Care Provider [phone] Encounter Details Date Type Department Care Team (Latest Contact Info) Description 04/04/2024 Travel Social History Tobacco Use Types Packs/Day Years [...] AM EDT documented as of this encounter Plan of Treatment Upcoming Encounters Date Type Department Care Team ([facility] st Contact Info) Description 05/05/2024 9:15 AM EST Office Visit [facility] MED & PEDS [address] [place] [address] Samuel Paiz MD [address] [place] [address] documented as of this encounter Visit Diagnoses Not on filedocumented in this encounter Additional Health Concerns Assessment Noted Time PHQ-9 Depression Total Score: 8 05/23/19 23 11:19 AM EDT documented as of this encounter Care Teams Geophysics Professor Relationship Specialty Start Date End Date Samuel Paiz MD [address] [place] [address] PCP - General Internal Medicine 12/02/12 documented as of this encounter
--- OUTSIDE RECORDS SUMMARY | 2024-04-04 18:26 | XMS_ITS | Encounter Summary ---
Author Organization [employer] Address [address] [facility] [facility] [address]t [place] [address] Care Team Providers Care Vp Data Name Role Phone Samuel Paiz MD Primary Care Provider [phone] Reason for Visit * Reason Comments HEP C MD INTAKE Encounter Details Date Type Department Care Team ([facility] st Contact Info) Description 04/04/2024 1:30 PM EST Office Visit [facility] [address] [place], [place] [phone] Mary Perla MD [address] [place], [place] [phone] Encounter for immunization (Primary Dx); Chronic hepatitis [...] AM EDT documented as of this encounter Last Filed Vital Signs Vital Sign Reading Time Taken Comments Blood Pressure 160/98 04/04/2024 1:17 PM EST Pulse 74 04/04/2024 1:17 PM EST Temperature 36.2 ??C (97.2 ??F) 04/04/2024 1:17 PM ES T Respiratory Rate 20 04/04/2024 1:17 PM EST Oxygen Saturation - - Inhaled Oxygen Concentration - - Weight 113 kg (249 lb 0.2 oz) 04/04/2024 1:17 PM EST Height - - Body Mass Index 31.12 01/13/2024 9:56 AM EST documented in this encounter Progress Notes * Mary Perla MD - 04/04/2024 1:30 PM EST RN spoke with pt via telephone for Hep C price changer. Pt diagnosed: 01/13/24 Diagnostics: HCV genotype: 1a (01/29/24) HCV viral load: [id number] (01/13/24) Fibrosis score: F3 (01/29/24) Hep A [...] med rec. Appointment with Dr. Perla: 04/04/24 HEP C MD INTAKE 04/04/24 Subjective Patient ID: Glen Burt is a 63 y.o. male who presents for HEP C MD INTAKE . Glen is here to discuss treatment options for chronic viral HCV, genotype 1a, viral load [id number], Fibrosis score F3, treatment-naive. No h/o IVDU/cocaine use. +MJ use. Rare alcohol use. +Tobacco. Sexually active with one female partner. He does not know her HCV status but plans to discuss this with her. They have been together for 13 years. He is aware that he will need to have Hep B DNA Quant and HIV testing to complete workup before treatment can commence. He appears highly motivated for treatment. price changer notes and pharmacy med rec reviewed. Review of Systems Cardiovascular: Negative for leg swelling. Gastrointestinal: Negative for abdominal pain, nausea and vomiting. Objective Physical Exam Constitutional: Appearance: Normal appearance. Cardiovascular: Rate and Rhythm: Normal rate and regular rhythm. Pulmonary: Effort: Pulmonary effort is normal. Breath sounds: Normal breath sounds. Abdominal: General: Abdomen is flat. Bowel sounds are normal. Palpations: Abdomen is soft. There is no fluid wave or hepatomegaly. Tenderness: There is no abdominal tenderness. There is no guarding. Neurological: Mental Status: He is alert. Assessment/Plan Diagnoses and all orders for this visit: Chronic hepatitis C without hepatic coma (CMS/HCC) Planned treatment and duration: Mavyret per patient preference. Will Rx after lab tests are reviewed. Potential drug interactions: none identified. Counseled patient on HCV transmission, natural history, treatment options and reviewed treatment course/duration, side effects, adherence strategies/importance, laboratory monitoring, chance of cure as documented by SVR12, and reinfection risk. Questions answered and concerns addressed. This information has been disclosed to you from records protected by federal confidentiality rules (42 CFR Part 2). The federal rules prohibit you from making any further disclosure of information inthis record that identifies a patient as having or having had a substance use disorder either directly, by reference to publicly available information, or through verification of such identification by another person unless further disclosure is expressly permitted by the written consent of the individual whose information is being disclosed or as otherwise permitted by (see2.3.1). The federal rules restrict any use of the information to investigate or prosecute with regard to a crime any patient with a substance use disorder, except as provided at 2.12??(5) and 2.65. documented in this encounter Miscellaneous Notes * Addendum Note - Clarisse Weldon LPN - 04/04/2024 1:30 PM ESTAddended by: CLARISSE WELDON on: 04/04/2024 02:17 PM Modules accepted: Orders documented in this encounter Plan of Treatment Upcoming Encounters Date Type Department Care Team (Late st Contact Info) Description 05/05/2024 9:15 AM EST Office Visit [facility] MED & PEDS [address] [place] [address] Samuel Paiz MD [address] [place] [address] documented as of this encounter Visit Diagnoses Diagnosis Encounter for immunization- Primary Chronic hepatitis C without hepatic coma (CMS/HCC) documented in this encounter Additional Health Concerns Assessment Noted Time PHQ-9 Depression Total Score: 8 05/23/19 23 11:19 AM EDT documented as of this encounter Care Teams Vp Data Relationship Specialty Start Date End Date Samuel Paiz MD [address] [place] [address] PCP - General Internal Medicine 12/02/12 documented as of this encounter
--- OUTSIDE RECORDS SUMMARY | 2024-04-04 18:26 | XMS_ITS | Encounter Summary ---
Author Organization [employer] Address [address] [place] [address] Care Team Providers Care Senior Financial Reporting Analyst Name Role Phone Samuel Paiz MD Primary Care Provider [phone] Encounter Details Date Type Department Care Team (Latest Contact Info) Description 03/29/2024 Travel Social History Tobacco Use Types Packs/Day [...] Upcoming Encounters Date Type Department Care Team ([facility] st Contact Info) Description 05/05/2024 9:15 AM EST Office Visit [facility] MED & PEDS [address] [place] [address] Samuel Paiz MD [address] [place] [address] documented as of this encounter Visit Diagnoses Not on filedocumented in this encounter Additional Health Concerns Assessment Noted Time PHQ-9 Depression Total Score: 8 05/23/19 23 11:19 AM EDT documented as of this encounter Care Teams Senior Financial Reporting Analyst Relationship Specialty Start Date End Date Samuel Paiz MD [address] [place] [address] PCP - General Internal Medicine 12/02/12 documented as of this encounter
--- OUTSIDE RECORDS SUMMARY | 2024-04-04 18:26 | XMS_ITS | Encounter Summary ---
Author Organization [employer] Address [address] [facility] [address] [place] [address] Care Team Providers Care Electronic Gaming Device Supervisor Name Role Phone Samuel Paiz MD Primary Care Provider [phone] Encounter Details Date Type Department Care Team ([facility] st Contact Info) Description 03/08/2024 Orders Only [facility] MED & PEDS [address] [place], [place] [phone] Samuel Paiz MD [address] [place] [address] Social History Tobacco Use Types Packs/Day Years [...] Upcoming Encounters Date Type Department Care Team ([facility] st Contact Info) Description 05/05/2024 9:15 AM EST Office Visit [facility] MED & PEDS [address] [place] [address] Samuel Paiz MD [address] [place] [address] documented as of this encounter Procedures Procedure Name Priority Date/Time Associated Diagnosis Comments US ABDOMEN COMPLETE WITH ELASTOGRAPHY Routine 03/08/2024 8:11 AM EST documented in this encounter Results * US Abdomen Comp w elastography (03/08/2024 8:11 AM EST) Anatomical Region Laterality Modality Abdomen Ultrasound 03/08/2024 8:11 AM EST Narrative 03/15/2024 2:23 PM EST ? [facility] ?[address] ?[place] [address] ? Ultrasound Report ? Signed ? Patient: Carmel,Glen T ?MR#: [id number] ? : 1960 ?Acct:[id number] ? Age/Sex: 63 / M ?ADM Date: 12/31/24 ? Loc: HO.US ? Attending : Samuel Paiz MD ? Ordering Physician: Samuel Paiz MD ?? Date of Service: 03/08/24 ?? Procedure(s): US abdomen comp w elastography ?? Accession Number(s): [id number] ? cc: Samuel Paiz MD ? EXAMINATION: [...] Radiologists in Ultrasound Liver Stiffness Thresholds (2019): ? LIVER STIFFNESS THRESHOLDS: ?? *Liver Stiffness [...] ??Aldair Hyman MD ??03/15/2024 02:20 PM EST ?? RP ? Dictated By: ?Aldair Hyman MD ? Signed By: ?<Electronically signed by Aldair Hyman MD in OV> ?03/15/24 1420 ? DD/ 0811 ? TD/TT: 03/08/24 0829 ? Orthopedic Technician: ? Procedure Note Donotuseinterpreter, Image - 03/15/[address] [address] Ultrasound Report Signed Patient: Glen Burt TMR#: [id number] : 1960Acct:[id number] Age/Sex: 63 / MADM Date: 03/08/24 Loc: HO.US Attending Dr: Samuel Paiz MD Ordering Physician: Samuel Paiz MD Date of Service: 03/08/24 Procedure(s): US abdomen comp w elastography Accession Number(s): [id number] cc: Samuel Paiz MD EXAMINATION: US ABDOMEN [...] Radiologists in Ultrasound Liver Stiffness Thresholds (2020): LIVER STIFFNESS THRESHOLDS: *Liver Stiffness equal or [...] by: Aldair Hyman MD 03/15/2024 02:20 PM [facility] Dictated By: Aldair Hyman MD Signed By: <Electronically signed by Aldair Hyman MD in OV> 03/15/24 1420 DD/ 0811 TD/TT: 03/08/24 0829 Orthopedic Technician: us Samuel Paiz MD IM US PROCEDURES Final Res ult documented in this encounter Visit Diagnoses Not on filedocumented in this encounter Additional Health Concerns Assessment Noted Time PHQ-9 Depression Total Score: 8 05/23/19 23 11:19 AM EDT documented as of this encounter Care Teams Electronic Gaming Device Supervisor Relationship Specialty Start Date End Date Samuel Paiz MD [address] [place] [address] PCP - General Internal Medicine 12/02/12 documented as of this encounter
[2024-04-05 08:17] LABS: HBS Num1 1.07 mIU/mL (0-7.99); HBc Num1 10.47 S/CO (0.00-0.79); HBsAGNum1 0.38 S/CO (0.00-0.99); HIV AB/AG Nonreactive (Nonreactive); HIV Num 1 0.06 S/CO (0.00-0.99); Hepatitis B Surface Antigen Negative (Negative); ~Hepatitis B Surface Antibody NONREACTIVE (Nonreactive)
[2024-04-05 10:13] LABS: HBc Num2 10.71 S/CO; HBc Num3 9.95 S/CO; Hepatitis B Core Antibody Reactive (Nonreactive)
[2024-04-06 17:04] LABS: Hepatitis B Viral DNA Qn - cp NOT DETECTED Log IU/mL (NOT DETECTED); Hepatitis B Viral DNA Qn-IU/mL NOT DETECTED (NOT DETECTED)
[2024-04-07 03:29] LABS: Hepatitis B Core Antibody IgM NON-REACTIVE (NON-REACTIVE)
== END 2024-04-04 13:44 | disposition home or self-care (01) ==
LOC: HO.HHCL 13:43
PROVIDERS: Visit Provider Internal Medicine
DX: B18.2 Chronic viral hepatitis C (principal); Z11.4 Encounter for screening for human immunodeficiency virus [HIV]
CPT/HCPCS: 36415; 86704; 86705; 86706; 87340; 87389; 87517

== ENCOUNTER 2024-06-02 08:28 | Day surgery (SDC) | payer MEDICAID, SELFPAY ==
[2024-05-31 10:03] VITALS: BMI 29.6
--- NOTE | 2024-06-01 08:12 | MHC.SHP ---
Pre-Procedural Eval Section A - 24 Hr Update-Section A only Date of Service: 06/02/24 The patient is an INPATIENT: No Changes since office visit: No Cold of Flu in the past 2 weeks, No New Medical Problems, No Changes in Medication and No Patient answered all questions Section B - Complete if H&P > 30 days Chief Complaint: Sebaceous cyst Allergies: Allergies Allergy/AdvReac Type Severity Reaction Status Date / Time No Known Allergies Allergy Verified 02/08/24 13:34 Review of Systems Sugical H&P ROS: Negative: Constitution, Cardiovascular, Respiratory, Neurological, Psychiatric, Hem-Onc, Allergic/Immunologic, Gastrointestinal, Genitourinary, Musculoskeletal, Integumentary, Endocrine and Eyes/Ears/Nose/Throat Exam Surgical H&P Exam: Normal: HEENT, Normal: Heart, Normal: Lungs, Normal: Extremities, Normal: Abdomen, Normal: Skin and Normal: Neurological Plan I have reviewed the history and physical and performed a pertinent physical examination on my patient. No changes have occurred unless specified. Time Spent With Patient Time: Total time managing care of this patient today ____ minutes.
--- NOTE | 2024-06-01 09:42 | HO.ANESPROP2 ---
Documented by User: Natalia Tobin NP 06/01/24 09:45 HPI - Anesthesia Eval Consult details Narrative: 63yo M for Left Wide Local Excision Chin/Neck sebacous cyst, Right Wide Local Excision Back Mass PMFSH Active Problems Active Problems: All Active Problems Sebaceous cyst (Acute) Past Medical History Medical History Hepatitis C test positive Insomnia Anxiety Depression HTN (hypertension) Surgical History Surgical History Hx of colonoscopy Social History Social History Patient Tobacco Use Status: Current everyday Tobacco user Tobacco use type: Cigarette Cigarettes Per Day: 5 Smoked in Last 30 Days: Yes Use of substances other than those prescribed or required for medical reasons: No Have you been hit, kicked, punched, or otherwise hurt by someone within the past year? If so, by whom?: No Are you DNR?: No Advance Directives: No (will bring dos) Advance Directives Information Provided: Yes Advance Directives on File: No Recently lost weight without trying: No Poor oral hygiene: No Meds Allergies Allergy/AdvReac Type Severity Reaction Status Date / Time No Known Allergies Allergy Verified 06/02/24 08:40 Home Medications ?Medication ?Instructions ?Recorded ?Confirmed ?Last Taken ?Type bupropion HCl 150 mg 24 hr tablet, 150 mg PO DAILY 02/08/24 05/31/24 Unknown History extended release fluoxetine 20 mg capsule 20 mg PO DAILY 02/08/24 05/31/24 Unknown History amlodipine 10 mg tablet 10 mg PO DAILY 05/31/24 05/31/24 Unknown History glecaprevir 100 mg-pibrentasvir 40 3 tab PO DAILY 05/31/24 05/31/24 Unknown History mg tablet (Mavyret) ibuprofen 800 mg tablet (IBU) 800 mg PO TID 05/31/24 05/31/24 05/29/24 History losartan 100 mg tablet 100 mg PO DAILY 05/31/24 05/31/24 Unknown History Exam Height,Weight and Vital Signs: Height 6 ft 3 in Weight 108.862 kg Assessment and Plan Assessment Anesthesia Assessment: Chart Reviewed Documented by User: Livier White MD 06/02/24 11:26 PMFSH Past Medical History Medical History Hepatitis C test positive Insomnia Anxiety Depression HTN (hypertension) Family History Family history of problems with anesthesia: No Surgical History Surgical History Hx of colonoscopy History of Problems with Anesthesia: No Social History Social History Patient Tobacco Use Status: Current everyday Tobacco user Tobacco use type: Cigarette Cigarettes Per Day: 5 Smoked in Last 30 Days: Yes Use of substances other than those prescribed or required for medical reasons: No Have you been hit, kicked, punched, or otherwise hurt by someone within the past year? If so, by whom?: No Are you DNR?: No Advance Directives: No (will bring dos) Advance Directives Information Provided: Yes Advance Directives on File: No Recently lost weight without trying: No Poor oral hygiene: No Meds Allergies Allergy/AdvReac Type Severity Reaction Status Date / Time No Known Allergies Allergy Verified 06/02/24 08:40 Home Medications ?Medication ?Instructions ?Recorded ?Confirmed ?Last Taken ?Type bupropion HCl 150 mg 24 hr tablet, 150 mg PO DAILY 02/08/24 05/31/24 Unknown History extended release fluoxetine 20 mg capsule 20 mg PO DAILY 02/08/24 05/31/24 Unknown History amlodipine 10 mg tablet 10 mg PO DAILY 05/31/24 05/31/24 Unknown History glecaprevir 100 mg-pibrentasvir 40 3 tab PO DAILY 05/31/24 05/31/24 Unknown History mg tablet (Mavyret) ibuprofen 800 mg tablet (IBU) 800 mg PO TID 05/31/24 05/31/24 05/29/24 History losartan 100 mg tablet 100 mg PO DAILY 05/31/24 05/31/24 Unknown History Exam Airway Mallampati Class: III TM Dist: >3cm Neck ROM: Full Heart: rrr Lungs: cta Assessment and Plan Final Anesthetic Review Family History of Problems with Anesthesia: No History of Problems with Anesthesia: No NPO: Yes ASA Class: III Final Preanesthetic Review: No Changes in Pt Med Stat, Meds/Allgs Chart Reviewed, Consent Obtained/Reviewed and Anes Risks/Benef Reviewed Patient Risk: Intermediate Procedure Risk: Low Anesthetic Plan Anesthetic Plan: MAC: Disposition: Standard PACU
[2024-06-02] VITALS (7 sets, daily range): BP systolic 97–154; BP diastolic 60–87; PULSE 68–73; RESP 12–18; TEMP 36.1–36.8; O2SAT 94–98
[2024-06-02] MEDS: Lactated Ringers 1,000 ML 100 ML IVCONT (08:46)
--- NOTE | 2024-06-02 13:27 | W.PM.OPN ---
Operative Note Operative Note Date of Service: 06/02/24 Narrative: Preoperative diagnosis: [] 1. Symptomatic enlarging right upper back large sebaceous cyst 2. Left mid anterior neck enlarging sebaceous cyst Postop diagnosis: [] The same Procedure [] 1. Wide local excision back sebaceous cyst. Final specimen measured approximately 4 by 8 cm. 2. Right neck sebaceous cyst measured a proximally 3 x 2 cm. Procedure: [] Patient brought to the operating room, placed on operative table supine position, after an adequate level of MAC anesthesia was induced, patient was placed in left lateral decubitus position. Right back was prepped and draped in usual sterile fashion. Using a transverse by elliptical incision encompassing the mass in question with dimensions as described above, this carried down through skin, subcutaneous tissue, were circumferentially dissection of large sebaceous cyst was carried out in toto and specimen sent to pathology. Wound was irrigated, secured hemostasis, and closed using a combination of interrupted 2-0 and 3-0 inverted dermal Vicryl sutures followed by Steri-Strips and sterile dressings. Wound was infiltrated the beginning at the end of the case with 0.5% Marcaine/1% lidocaine. Patient was then placed supine and the left neck was prepped and draped in usual sterile fashion using a transverse by elliptical incision encompassing the mid left neck sebaceous cyst similarly this was excised sent to pathology for specimen taken. Wound was irrigated, secured hemostasis, and closed using interrupted inverted dermal 3-0 Vicryl sutures followed by Steri-Strips and sterile dressings. This wound was also infiltrated at the beginning at the end with 0.5% Marcaine/1% lidocaine. Sponge, needle, and instrument counts reported correct. Patient tolerated the procedure well and emerged from anesthesia stable condition. EBL minimal Surgeon; John Crown Pouncer: [] West Type of Anesthesia: [] MAC Indication for surgery: [] As noted above
== END 2024-06-02 14:17 | disposition home or self-care (01) ==
PROVIDERS: PCP Internal Medicine; Visit Provider Surgery
PROC: (CPT 11406; principal; 2024-06-02 10:30)
PROC: (CPT 11406; 2024-06-02 10:30)
DX: L72.3 Sebaceous cyst (principal); I10 Essential (primary) hypertension; F32.A Depression, unspecified; F41.9 Anxiety disorder, unspecified; Z79.899 Other long term (current) drug therapy; F17.210 Nicotine dependence, cigarettes, uncomplicated
CPT/HCPCS: 11406; 11424; 88304; J0690; J1100; J2003; J2250; J2704; J2795; J3010

== ENCOUNTER → 2024-06-02 08:28 | Outpatient (BNV) | payer MEDICAID, SELFPAY | PROVIDERS: PCP Internal Medicine; Visit Provider Surgery | DX: L72.3 Sebaceous cyst (principal) | CPT/HCPCS: 11406; 11422 ==

== ENCOUNTER 2024-06-13 10:12 | Outpatient (AMB) | payer MEDICAID, SELFPAY ==
--- NOTE | 2024-06-13 10:16 | A.OFFVIS_ITS ---
Intake Visit Reasons: S/P WLE Lt. mid neck mass & Rt. mid back mass Intake Note: Patient here s/p 1. Wide local excision back sebaceous cyst. 2. Right neck sebaceous cyst. Patient c/o: back steri strips in placed. Apprentice Technician Required: No Accompanied by: Self / Same As Patient Allergies No Known Allergies Allergy (Verified 06/13/24 10:18) HPI Comments Details: Patient was for follow-up. He has no wound issues or complaints. Pathology for each area was benign [facility] Medical History Hepatitis C test positive Insomnia Anxiety Depression HTN (hypertension) Surgical History Hx of colonoscopy Social History Patient Tobacco Use Status: Current everyday Tobacco user Tobacco use type: Cigarette Cigarettes Per Day: 5 Physical Exam HEENT Other: Left neck incision clean dry and intact healing well Back/Spine/Pelvis Other: Right upper back incision healing very well clean dry and intact Assessment & Plan Assessment & Plan (1) Encounter for postoperative wound check: Code(s): Z48.89 - Encounter for other specified surgical aftercare Category: Surgical Plan Patient was been given local instructions including avoiding strenuous activities next few weeks time we will otherwise follow-up p.r.n.. All questions answered. Coding Level of Care Code Global (18236) Diagnoses Encounter for postoperative wound check Z48.89
--- OUTSIDE RECORDS SUMMARY | 2024-06-13 11:57 | XMS_ITS | Clinical Summary ---
Author Organization [employer] Address [address] [facility] [address] [place] [address] Care Team Providers Care Clinical Pharmacologist Name Role Phone Samuel Paiz MD Primary Care Provider [phone] Allergies Active Allergy Reactions Criticality Noted Date Comments Acetaminophen 02/08/2013 Other Reaction(s): UPSET STOMACH Codeine 02/08/2013 Other reaction(s): UPSET STOMACH Medications buPROPion XL (Wellbutrin XL) 150 MG 24 hr tablet Take 150 mg by mouth in the morning. 3 Active IBU 800 MG tablet TAKE ONE TABLET BY MOUTH THREE TIMES DAILY WITH FOOD. 60 tablet 2 4 Active FLUoxetine (PROzac) 40 MG capsule Take 40 mg by mouth Once per day. 4 Active FLUoxetine (PROzac) 20 MG capsule Take 20 mg by mouth Once per day. With 40 mg capsule Active diphenhydrAMINE (BENADryl) 25 MG capsule Take 25 mg by mouth if needed at bedtime for sleep. Active amLODIPine (Norvasc) 10 MG tablet TAKE ONE TABLET DAILY 90 tablet 3 5 Active losartan (Cozaar) 100 MG tabletIndications :Essential (primary) hypertension TAKE ONE TABLET EVERY DAY 90 tablet 3 5 Active Glecaprevir-Pibre ntasvir (Mavyret) 100-40 MG tabletIndications :Chronic hepatitis C without hepatic coma (CMS/HCC) Take 3 tablets by mouth Once per day. 90 tablet 1 5 05/29/19 25 Active Problems Problem Noted Date Diagnosed Date Chronic hepatitis C without hepatic coma 025 Primary insomnia 04/15/2018 Depressive disorder 03/21/2015 Hypertensive disorder 03/21/2015 Encounters Date Type Department Care Team Description 06/02/2024 Orders Only GENERIC EXTERNAL DATA DEPARTMENT Provider, Generic External Data 05/24/2024 Telephone [facility] [address] [place] [phone] Chrissy Grant RN 05/20/2024 Population Health Risk Score [facility] (C3) Department [address] [phone] Provider, Population Health Generic 05/05/2024 9:15 AM EST Office Visit [facility] [address] [place] [address] Samuel Paiz MD Chronic hepatitis C without hepatic coma (CMS/HCC) (Primary Dx); Primary hypertension; Depressive disorder; Encounter for immunization 05/05/2024 Travel 05/02/2024 Telephone [facility] [address] [place] [address] Samuel Paiz MD CHART PREP 04/29/2024 Refill [facility] [address] [place] [address] Samuel Paiz MD Essential (primary) hypertension 04/29/2024 Telephone [facility] [address] [place] [address] Samuel Paiz MD Med Refill 04/28/2024 Refill [facility] [address] [place] [phone] Lorie Logan, accounts payable technician hepatitis C without hepatic coma (CMS/HCC) 04/18/2024 Telephone [facility] [address] [place] [phone] Lorie Logan, JE 04/04/2024 1:30 PM EST Office Visit [facility] [address] [place] [phone] Mary Riojas MD Encounter for immunization (Primary Dx); Chronic hepatitis C without hepatic coma (CMS/HCC) 04/04/2024 Orders Only [facility] [address] [place] [address] Samuel Paiz MD 04/04/2024 Travel 03/29/2024 11:30 AM EST Telemedicine [facility] [address] [place] [address] Chrissy Grant RN Chronic hepatitis C without hepatic coma (CMS/HCC) 03/29/2024 Travel 03/25/2024 Telephone [facility] [address] [place] [address] Naresh Newsome, JE Hep C Management from Last 3 Months Immunizations Name Administration Dates Next Due Influenza injectable quadriv alent IIV4 with preservative 12/07/2017,11/28/2016,12/25/2015,2014 Influenza injectable quadriv alent preservative free 11/24/2022,12/17/2021,12/26/2020,2019 Influenza, Split (incl. merari fied surface antigen) 03/15/2013 Influenza, seasonal, injecta ble, preservative free 01/13/2024 Pfizer Covid-19 Vaccine 12+ 04/04/2024, 3 Pneumococcal Conjugate PCV 20 05/05/2024 Tdap 05/05/2024,08/26/2013 Family History Medical History Relation Name Comments [...] Sign Reading Time Taken Comments Blood Pressure 165/94 05/05/2024 9:00 AM EST Pulse 80 05/05/2024 9:00 AM EST Temperature 36.6 ??C (97.9 ??F) 05/05/2024 9:00 AM ES T Respiratory Rate 20 05/05/2024 9:00 AM EST Oxygen Saturation 98% 05/05/2024 9:00 AM EST Inhaled Oxygen Concentration - - Weight 113 kg (249 lb) 05/05/2024 9:00 AM EST Height 190.5 cm (6' 3 ) 05/05/2024 9:00 AM EST Body Mass Index 31.12 05/05/2024 9:00 AM EST Plan of Treatment Upcoming Encounters Date Type Department Care Team ([facility] st Contact Info) Description 08/04/2024 11:30 AM EDT Office Visit [facility] [address] [place] [address] Samuel Paiz MD [address] [place] [address] Health Maintenance Due Date Last Done Comments CT Colonography 1960 Colonoscopy 1960 Colorectal Cancer Screening 1960 FIT DNA/Cologuard 1960 FIT 1960 FOBT 1960 Sigmoidoscopy 1960 Hepatitis A Vaccines (1 of 2 - Risk 2-dose series) 1981 Zoster Vaccines (1 of 2) 2012 Hepatitis B Vaccines (1 of 3 - Risk 3-dose series) 2022 RSV Patients and Patients Aged 60 years or older (1 - Risk 60-74 years 1-dose series) 2022 SDOH Screening 01/03/2025 01/04/2024 Depression Screening 01/12/2025 01/13/2024, 05/23/19 Alcohol/Substance Use Screening 05/05/2025 05/05/2024 Tobacco Screening 05/05/2025 05/05/2024 Lipid Panel 01/12/2029 01/13/2024 DTaP/Tdap/Td Vaccines (3 - Td or Tdap) 05/05/2034 05/05/2024, 08/26/2013 Influenza Vaccine Completed 01/13/2024, , 12/17/2021, Additional history exists COVID-19 Vaccine Completed 04/04/2024, , 12/17/2021, Additional history exists HIV Screening Completed 04/04/2024 Pneumococcal Vaccine: 50+ Years Completed 05/05/2024 HIB Vaccines Aged Out No longer eligi [...] Procedure Name Priority Date/Time Associated Diagnosis Comments GROSS AND MICROSCOPIC LEVEL 3 Routine 06/02/2024 1:07 PM EDT HEPATITIS B CORE ANTIBODY (IGM) Routine 04/04/2024 1:45 PM EST HEPATITIS B VIRUS DNA, QN, REAL TIME PCR Routine 04/04/2024 1:45 PM EST HEPATITIS B CORE AB TOTAL Routine 04/04/2024 1:45 PM EST HEPATITIS B SURFACE ANTIGEN, EIA Routine 04/04/2024 1:45 PM EST HIV 1/2 ANTIGEN/ANTIBODY, FOURTH GENERATION W/RFL Routine 04/04/2024 1:45 PM EST HEPATITIS B SURFACE ANTIBODY, QUALITATIVE Routine 04/04/2024 1:45 PM EST LIPID PANEL, STANDARD Routine 01/13/2024 10:43 AM EST Primary hypertension from Last 3 Months or Most Recently Relevant to Health Maintenance Results * Gross and Microscopic Level 3 (06/02/2024 1:07 PM EDT) 06/02/2024 1:07 PM EDT 06/02/2024 2:03 PM EDT [facility] - 06/03/2024 5:21 PM EDT ----- ------- Name: Glen Burt ?Age/Sex: 63/M ? : 1960 Unit#: [id number] ?? Attend Dr: Dylan Lopez MD ?Re06/02/24 ?Status: DEP SDC ? Location: HO.SSS ?Disch: ? ----- ------- SPEC : [id number] ? RECD: 06/02/24 ? STATUS: ??SOUT ? REQ NUM: [id number] ? PANKAJ: 06/02/24 ? SUBM DR: Dylan Lopez MD ? ENTERED: ??06/02/24 ?SP TYPE: Surgical ? OTHR DR: Samuel Paiz MD ? ORDERED: ??Gross Micro L3/2 ? Diagnosis ?? A. ??Skin, right mid back, excision: ??Epidermal inclusion cyst. ? B. ??Skin, left neck, excision: ??Epidermal inclusion cyst. ?Clinical History Sebaceous cysts ?Microscopic Description A, B. ??Microscopic sections reviewed. ? Material Received ?? A. Right mid back sebaceous cyst ?? B. Sebaceous cyst, left neck ? Gross Description Received in two parts Part A: ??Received in formalin labeled right mid back sebaceous cyst is a 5.5 x 2.5 cm ellipse of focally puckered and retracted oneill skin and firm and nodular subcutaneous tissue excised to a maximum depth of 2.0 cm. No superficial skin lesions are identified. ??The margins are inked and the specimen is serially sectioned to reveal a 1.5 cm in greatest dimension intact, thin-walled oneill-white cyst within the fibrous dermal tissue and subcutaneous fat. ??A circulation sales representative section is submitted in a cassette labeled A1. Part B: ??Received in formalin labeled ?sebaceous cyst left neck? is a 2.0 x 0.8 cm ellipse of puckered and retracted oneill skin and subcutaneous tissue excised to a maximum depth of 0.8 cm. ??The skin surface is slightly puckered and retracted. ??The tissue at the deep margin is remarkable for a 0.5 cm pearly oneill-white cyst which contains and exudes cuevas- white keratotic material. ??The margins are inked and the specimen is sectioned to reveal a similar cyst, bisected and entirely submitted in cassette B1. CEDS ? CONTINUED ON NEXT PAGE ----- ------- Name: Glen Burt ?Age/Sex: 63/M ? : 1960 Unit#: [id number] ?? Attend Dr: Dylan Lopez MD ?Re06/02/24 ?Status: DEP SDC ? Location: HO.SSS ?Disch: ? ----- ------- SPEC : [id number] ? RECD: 06/02/24 ? STATUS: ??SOUT ? REQ NUM: [id number] ? PANKAJ: 06/02/241 ? SUBM DR: Dylan Lopez MD ? ENTERED: ??06/02/249 ?SP TYPE: Surgical ? OTHR : Samuel Paiz MD ? ORDERED: ??Gross Micro L3/2 ? Copies To: ?? Samuel Paiz MD ?? [facility] ?? [address] ?? [place] [address] ?? [phone] ?? Dylan Lopez MD ?? [facility] ?? [address] ?? [place] [address] ?? [phone] ?? [email or web address] ----- ------- Signed (signature on file) Jorge Vieyra MD 06/03/24 1721 ? ----- ------- ? END OF REPORT ? us Generic External Data Provider LAB CYTOLOGY STEVEE RABLES Final Result Performing Organization Address [facility] de Phone Number [facility] [address] [place] [phone] * Hepatitis B Core??Antibody (IgM) (04/04/2024 1:45 PM EST) Hepatitis B Core Antibody IgM NON-REACTI VE NON-REACTI VE [facility] Comment:For additional infor mation, please refer tohttp://education.[employer]/faq/VDD767(This link is being provided for informational/educational purposes only.)THIS TEST WAS PERFORMED AT:[address] [place] [phone] HAYNES MD 04/04/2024 1:45 PM EST 04/04/2024 4:20 PM EST us Samuel Paiz MD LAB BLOOD ORDERABLES Final Result Performing Organization Address [facility]/ZIP Co de Phone Number [facility] [address] [place] [phone] * Hepatitis B surface antigen, EIA (04/04/2024 1:45 PM EST) Hepatitis B Surface Ag Negative Negative [facility] 04/04/2024 1:45 PM EST 04/04/2024 4:20 PM EST us Samuel Paiz MD LAB BLOOD ORDERABLES Final Result Performing Organization Address [facility] Co de Phone Number [facility] [address] [place] [phone] * Hepatitis B Core Antibody, Total (04/04/2024 1:45 PM EST) Hepatitis B Core Antibody Reactive Nonreactive [facility] Comment:Presumptive evidence of anti-HBc. 04/04/2024 1:45 PM EST 04/04/2024 4:20 PM EST us Samuel Paiz MD LAB BLOOD ORDERABLES Final Result Performing Organization Address [facility] de Phone Number [facility] [address] [place] [phone] * Hepatitis B Virus DNA, Quantitative, Real-Time PCR (04/04/2024 1:45 PM EST) Hepatitis B Viral DNA Qn - cp NOT DETECTED NOT DETECTED Log IU/mL [facility] Comment:This test was perfor med using Real-Time Polymerase ChainReaction.Reportable Range: 10 IU/mL to 1,000,000,000 IU/mL.(1.00 Log IU/mL to 9.00 Log IU/mL).THIS TEST WAS PERFORMED AT:[address] [place] [id number] HAYNES MD Hepatitis B Viral DNA Qn-IU/mL NOT DETECTED NOT DETECTED IU/mL [facility] 04/04/2024 1:45 PM EST 04/04/2024 4:20 PM EST Samuel Paiz MD LAB BLOOD ORDERABLES Final Result Performing Organization Address [facility]/ZIP Co de Phone Number [facility] [address] [place] [phone] * HIV-1/2 Antigen and Antibodies, Fourth Generation, with Reflexes (04/04/2024 1:45 PM EST) HIV AB/AG Nonreactive Nonreactive [facility] Comment:HIV-1 p24 Ag and/or HIV-1/HIV-2 Ab not detected.A test result that is nonreactive does not exclude thepossibility of exposure to or infection with HIV-1 and/orHIV-2. Nonreactive results in this assay for individualswith prior exposure to HIV-1 and/or HIV-2 may be due toantigen and antibody levels that are below the limit ofdetection of this assay.The [employer] HIV Ag/Ab Combo assay result andsupplemental assay results should be interpreted inconjunction with the patient's clinical presentation,history and other laboratory results. If the results areinconsistent with clinical evidence, additional testing issuggested to confirm the result. 04/04/2024 1:45 PM EST 04/04/2024 4:20 PM EST us Samuel Paiz MD LAB BLOOD ORDERABLES Final Result Performing Organization Address [facility] Co de Phone Number [facility] [address] [place] [phone] * Hepatitis B Surface Antibody, Qualitative (04/04/2024 1:45 PM EST) ~Hepatitis B Surface Antibody NONREACTIVE Nonreactive [facility] Comment:Nonreactive: < 8.00 mIU/mL 04/04/2024 1:45 PM EST 04/04/2024 4:20 PM EST Samuel Paiz MD LAB BLOOD ORDERABLES Final Result Performing Organization Address City/[facility]/ZIP Co de Phone Number [facility] [address] [place] [phone] * (ABNORMAL) Lipid Panel, Standard (01/13/2024 10:43 AM EST) Triglycerides 131 <150 mg/dL [facility] Comment:Desirable Triglyceri de: less than 150 mg/dLBorderline High Triglyceride 150-199 mg/dLHigh Triglyceride: 200-499 mg/dLVery High Triglyceride: greater than or equal to 5OO mg/dL Cholesterol 169 <200 mg/dL [facility] Comment:Desirable Cholestero l: less than 200 mg/dLBorderline High Cholesterol: 200-239 mg/dLHigh Cholesterol: greater than 239 mg/dL LDL Cholesterol Calculated 111(H) <100 mg/dL [facility] Comment:Desirable LDL: less than 100 mg/dLNear Optimal/Above Optimal LDL: 110- 129 mg/dLBorderline High LDL: 130-159 mg/dLHigh LDL: 160-189 mg/dLVery High LDL: greater than or equal to 190 mg/dL HDL Cholesterol 32(L) >40 mg/dL [facility] Comment:Desirable HDL: great er than 40 mg/dL Note: This HDL assay may give artificially low results in patients with liver disease. Blood Venous blood specimen / Unknown 01/13/2024 10:43 AM EST 01/13/2024 2:18 PM EST Samuel Paiz MD LAB BLOOD ORDERABLES Final Result [facility] [address] [place] [phone] [phone] from Last 3 Months or Most Recently Relevant to Health Maintenance [facility] Care Teams Clinical Pharmacologist Relationship Specialty Start Date End Date Samuel Paiz MD [address] [place] [phone] PCP - General Internal Medicine 12/02/12
== END 2024-06-13 10:19 | disposition home or self-care (01) ==
LOC: HO.HGS 10:13
PROVIDERS: PCP Internal Medicine; Visit Provider Surgery
DX: Z48.89 Encounter for other specified surgical aftercare (principal)
CPT/HCPCS: 99024

== ENCOUNTER → 2024-06-13 10:12 | Outpatient (BNVA) | payer MEDICAID, SELFPAY | PROVIDERS: PCP Internal Medicine; Visit Provider Surgery | DX: Z09 Encounter for follow-up examination after completed treatment for conditions other than malignant neoplasm (principal); Z87.2 Personal history of diseases of the skin and subcutaneous tissue; Z98.890 Other specified postprocedural states | CPT/HCPCS: 99212 ==

== ENCOUNTER 2024-10-03 10:42 | Outpatient (REF) | payer MEDICAID, SELFPAY ==
--- OUTSIDE RECORDS SUMMARY | 2024-10-03 11:55 | XMS_ITS | Patient Health Record ---
Author Organization [facility] Address [address] [place] [address] Care Team Providers Care Seed Pelleter Name Role Phone Samuel Paiz M.D. Primary Care Provider Un available Jhoan Holly Jr Unavailable [phone] Reason For Referral Referring Provider First Name Samuel Referring Provider Last Name Chencho Referring Provider Speciality Internal M edicine Referred Organization [facility] Referred Provider Jhoan Holly Jr Referred Address [address],[place], [place],[address], Referred Provider Specialty Gastroentero logy General Notes requested a massheal th referral from [facility] for visit with Dr. Holly on 10-27-2024 for a screening colon [phone] Referral Priority Routine Medications Medication SIG (Take, Route, Frequency, Duration) Notes Start Date End Date Status Colyte with Flavor Packs 240 GM As directed Orally Over the specified time. for 1 day(s) 08/31/2013 Active amLODIPine Besylate 10 MG 1 tablet Orally Once a day Active Lisinopril-hydroCHLOROthia zide 10-12.5 MG 1 tablet Orally Once a day Active Social History Tobacco Use: Social History Observation Description Date Details (start date - stop date) Current Smoker NA - NA Tobacco Use/Smoking Question Answer Notes Patient is a current smoker How often do you smoke cigarettes? some days, bu t not every day How many cigarettes a day do you smoke? 5 or les s How soon after you wake up d o you smoke your first cigarette? after 60 minutes Alcohol Screen Question Answer Notes Did you have a drink contain ing alcohol in the past year? Yes How often did you have a dri nk containing alcohol in the past year? Monthly or less (1 point) How many drinks did you have on a typical day when you were drinking in the past year? 1 or 2 drinks (0 point) How often did you have 6 or more drinks on one occasion in the past year? Never (0 point) Points 1 Interpretation Negative Problems Problem Type SNOMED Code ICD Code Onset Dates Problem Status W/U Status Risk Notes Problem [id number] Colon cancer screening (V76.51) Active confirmed Plan Of Treatment Next Appt Details Provider Name:Jhoan mead , 10/27/2024 03:15:00 PM, [address] [place] [address], [address], [place], [address], Insurance Providers Payer Name Payer Address Payer Phone Subscriber Number Group Number Insured Name Patient Relationship to Insured Coverage Start Date Coverage End Date MEDICAID OF [employer] [address] J[place] CÉS[place] QU[place] [id number] SAMARA YOUSSEF Self - patient is the insured Medical (General) History Medical History History ICD Code Denies [place],DM,CVA,Lung disease,renal dise ase hypertension
--- OUTSIDE RECORDS SUMMARY | 2024-10-03 11:55 | XMS_ITS | Clinical Summary ---
Author Organization [employer] Address [address] [place] [address] Care Team Providers Care Executive Coordinator Name Role Phone Samuel Paiz MD Primary Care Provider [phone] Allergies Active Allergy Reactions Criticality Noted Date [...] EVERY DAY 90 tablet 3 5 Active nicotine (Nicoderm CQ) 7 MG/24HR patchIndications: Smoking addiction Place 1 patch on the skin 1 (one) time each day at the same time. 30 patch 5 Active Active Problems Problem Noted Date Diagnosed Date Smoking addiction 08/04/2024 Chronic hepatitis C without hepatic coma 025 Primary insomnia 04/15/2018 Depressive disorder 03/21/2015 Hypertensive disorder 03/21/2015 Encounters Date Type Department Care Team Description 09/28/2024 Telephone [facility] [address] [place] [phone] Lorie Logan, JE 09/26/2024 Orders Only [facility] [address] [place] [id number] Lorie Logan, control systems eng hepatitis C without hepatic coma (CMS/HCC) (Primary Dx) 09/26/2024 Telephone [facility] [address] [place] [id number] Lorie Logan RN 09/22/2024 Telephone [facility] [address] [place] [address] Samuel Paiz MD 09/06/2024 10:00 AM EDT Office Visit [facility] [address] [place] [address] Samuel Paiz MD 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/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 Travel 08/04/2024 11:30 AM EDT Office Visit [facility] [address] [place] [address] Samuel Paiz MD Primary hypertension (Primary Dx); Chronic hepatitis C without hepatic coma (CMS/HCC); Polyp of colon, unspecified part of colon, unspecified type; Skin growth; Smoking addiction 08/04/2024 Travel from Last 3 Months Immunizations Immunization Administration Dates Next Due Influenza injectable quadriv alent IIV4 with preservative 12/07/2017,11/28/2016,12/25/2015,2014 Influenza injectable quadriv alent preservative free 11/24/2022,12/17/2021,12/26/2020,2019 Influenza, Split (incl. merari fied surface antigen) 03/15/2013 Influenza, seasonal, injecta ble, preservative free 01/13/2024 Pfizer Covid-19 Vaccine 12+ 04/04/2024, Pneumococcal Conjugate PCV 20 05/05/2024 Tdap 05/05/2024,08/26/2013 [...] Sign Reading Time Taken Comments Blood Pressure 140/93 09/06/2024 9:42 AM EDT Pulse 70 09/06/2024 9:42 AM EDT Temperature 36.6 C (97.8 F) 09/06/2024 9:42 AM EDT Respiratory Rate 16 09/06/2024 9:42 AM EDT Oxygen Saturation 96% 08/04/2024 11:08 AM EDT Inhaled Oxygen Concentration - - Weight 107 kg (236 lb) 09/06/2024 9:42 AM EDT Height 190.5 cm (6' 3 ) 09/06/2024 9:42 AM EDT Body Mass Index 29.5 09/06/2024 9:42 AM EDT Plan of Treatment Upcoming Encounters Date Type Department Care Team ([facility] st Contact Info) Description 12/05/2024 10:45 AM EDT Office Visit [facility] [address] [place] [address] Samuel Paiz MD [address] [place] [address] Health Maintenance Due Date Last Done Comments CT Colonography 1960 Colonoscopy 1960 Colorectal Cancer Screening 1960 FIT DNA/Cologuard 1962 FIT 1962 FOBT 1960 Sigmoidoscopy 1960 Disability Screening 1962 Derm Melanoma Skin Check 06/16/1963 Hepatitis A Vaccines (1 of 2 - Risk 2-dose series) 1981 Zoster Vaccines (1 of 2) 2012 Hepatitis B Vaccines (1 of 3 - Risk 3-dose series) 2022 RSV Patients and Patients Aged 60 years or older (1 - Risk 60-74 years 1-dose series) 2022 Influenza Vaccine (#1) 2024 , 11/24/2022, 12/17/2021, Additional history exists SDOH Screening 01/03/2025 01/04/2024 Depression Screening 01/12/2025 01/13/2024, 05/23/19 23 Alcohol/Substance Use Screening 05/05/2025 05/05/2024 Tobacco Screening 09/06/2025 09/06/2024 Lipid Panel 01/12/2029 01/13/2024 DTaP/Tdap/Td Vaccines (3 - Td or Tdap) 05/05/2034 05/05/2024, 08/26/2013 COVID-19 Vaccine Completed 04/04/2024, , 12/17/2021, Additional [...] patient's age to complete this topic Meningococcal B Vaccine Aged Out No l onger eligible based on patient's age to complete [...] Procedure Name Priority Date/Time Associated Diagnosis Comments EPIDERMAL / DERMAL SHAVING Routine 09/06/2024 12:38 PM EDT Neoplasm of uncertain behavior HIV 1/2 ANTIGEN/ANTIBODY, FOURTH GENERATION W/RFL Routine 04/04/2024 1:45 PM EST LIPID PANEL, STANDARD Routine 01/13/2024 10:43 AM EST Primary hypertension from Last 3 Months or Most Recently Relevant to Health Maintenance Results * Shave removal (09/06/2024 12:38 PM EDT) Samuel Pollard MD - 09/06/2024 12:38 PM EDT Samuel Paiz MD 09/06/2024 12:41 PM Shave removal Date/Time: 09/06/2024 12:38 PM Performed by: Samuel Paiz MD Authorized by: Samuel Paiz MD Consent: Consent obtained: Written Consent given by: Patient Risks discussed: Infection, pain and poor cosmetic result Alternatives discussed: Observation [place] protocol: Procedure explained and questions answered to patient or proxy's satisfaction: yes Relevant documents present and verified: no Test results available: no Imaging studies available: no Required blood products, implants, devices, and special equipment available: no Site/side marked: no Immediately prior to procedure, a time out was called: yes Patient identity confirmed: Verbally with patient Number of Lesions: 1 Lesion 1: Body area: trunk Trunk location: back Initial size (mm): 5 Final defect size (mm): 5 Malignancy: malignancy unknown Comments: The area was cleansed with alcohol, infiltration of Xylocaine 2% 0.5 mL, lot [id number], expiration date 04/04. Shave biopsy performed with a derma blade. Followed by electrocauterization. Procedure well-tolerated. A Band-Aid was applied after. Patient is to cleanse the area daily with hydrogen peroxide. us Samuel Paiz MD DERM PROCEDURE ORDERABLES F inal Result * HIV-1/2 Antigen and Antibodies, Fourth Generation, with Reflexes (04/04/2024 1:45 PM EST) HIV AB/AG Nonreactive Nonreactive [facility] Comment:HIV-1 p24 Ag and/or HIV-1/HIV-2 Ab not detected.A test result that is nonreactive does not exclude thepossibility of exposure to or infection with HIV-1 and/orHIV-2. Nonreactive results in this assay for individualswith prior exposure to HIV-1 and/or HIV-2 may be due toantigen and antibody levels that are below the limit ofdetection of this assay.The [employer]armAssistant HIV Ag/Ab Combo assay result andsupplemental assay results should be interpreted inconjunction with the patient's clinical presentation,history and other laboratory results. If the results areinconsistent with clinical evidence, additional testing issuggested to confirm the result. 04/04/2024 1:45 PM EST 04/04/2024 4:20 PM EST us Samuel Paiz MD LAB BLOOD ORDERABLES Final Result [facility] [address] [place] [address] [phone] * (ABNORMAL) Lipid Panel, Standard (01/13/2024 10:43 AM EST) Triglycerides 131 <150 mg/dL [facility] Comment:Desirable Triglyceri de: less than 150 mg/dLBorderline High Triglyceride 150-199 mg/dLHigh Triglyceride: 200-499 mg/dLVery High Triglyceride: greater than or equal to 5OO mg/dL Cholesterol 169 <200 mg/dL [facility] Comment:Desirable Cholestero l: less than 200 mg/dLBorderline High Cholesterol: 200-239 mg/dLHigh Cholesterol: greater than 239 mg/dL LDL Cholesterol Calculated 111(H) <100 mg/dL [facility] Comment:Desirable LDL: less than 100 mg/dLNear Optimal/Above Optimal LDL: 110- 129 mg/dLBorderline High LDL: 130-159 mg/dLHigh LDL: 160-189 mg/dLVery High LDL: greater than or equal to 190 mg/dL HDL Cholesterol 32(L) >40 mg/dL [facility] Comment:Desirable HDL: great er than 40 mg/dL Note: This HDL assay may give artificially low results in patients with liver disease. Blood Venous blood specimen / Unknown 01/13/2024 10:43 AM EST 01/13/2024 2:18 PM EST Samuel Paiz MD LAB BLOOD ORDERABLES Final Result [facility] [address] [place] [address] [phone] from Last 3 Months or Most Recently Relevant to Health Maintenance [place] [address] [place] [address] C3 Care Teams Executive Coordinator Relationship Specialty Start Date End Date Samuel Paiz MD [address] [place] [id number] PCP - General Internal Medicine 12/02/12
[2024-10-03 12:41] LABS: ~HepC Num1 13.33 S/CO (0.00-0.79); ~Hepatitis C Antibody Reactive (Nonreactive)
[2024-10-07 01:03] LABS: HCV Log PCR <1.18 NOT DETECTED Log IU/mL (NOT DETECTED); HepC Viral Load <15 NOT DETECTED IU/mL (NOT DETECTED)
== END 2024-10-03 10:43 | disposition home or self-care (01) ==
LOC: HO.HHCL 10:42
PROVIDERS: PCP Internal Medicine; Visit Provider Family Medicine
DX: Z11.59 Encounter for screening for other viral diseases (principal); B18.2 Chronic viral hepatitis C
CPT/HCPCS: 36415; 86803; 87522

== ENCOUNTER 2024-12-30 05:47 | Day surgery (SDC) | payer MEDICAID, SELFPAY ==
--- OUTSIDE RECORDS SUMMARY | 2024-10-27 11:15 | XMS_ITS ---
Author Organization [facility] Address [address] [place] [address] Care Team Providers Care Credit Risk Officer Name Role Phone Samuel Paiz M.D. Primary Care Provider Un available Jhoan Holly Jr Unavailable [phone] Allergies No Known Allergies REASON FOR VISIT Patient presents today for a COLON SCREENING Medications Medication SIG (Take, Route, Frequency, Duration) Notes Start Date End Date Status Losartan Potassium A ctive amLODIPine Besylate 10 MG 1 tablet Orally Once a day Active Social History Tobacco Use: Social History Observation Description Date Details (start date - stop date) Current Smoker NA - NA Tobacco Control (Standard) Question Answer Notes Tobacco use: Current smoker How often do you smoke cigarettes? Every day How many cigarettes a day do you smoke? 5 or les s Vital Signs Blood pressure systolic 111 mm Hg 10/28/19 25 Blood pressure diastolic 77 mm Hg 025 Height 74.5 in 10/27/2024 Weight 237 lbs 10/27/2024 BMI 30.02 kg/m2 10/27/2024 Encounters Encounter Location Date Provider Diagnosis [facility] [address] [place] [phone] 10/27/2024 Jhoan Holly Jr Encounter for screening for malignant neoplasm of colon Z12.11 Assessments Encounter Date Diagnosis (ICD Code) Assessment Notes Treatment Notes Treatment Clinical Notes Section Notes 10/27/2024 Encounter for screening for malignant neoplasm of colon (ICD-10 - Z12.11) Plan Of Treatment Next Appt Details Provider Name:Jhoan mead Jr, 12/30/2024 08:20:00 AM, [address] [place] [address] , [place], [place], [phone], Progress Notes * SAMARA YOUSSEFDOB:1960 (63 yo M)Acc No.[id number]:10/27/2024 Progress Notes Patient: SAMARA GLASS Provider: Juan Holly MD :1960 A ge:63 Y S ex:Male Date:10/27/2024 Address:[address] [place] [address] Pcp:Samuel Paiz M.D. Subjective: * Chief Complaints: * 1 . Patient presents today for a COLON SCREENING. * Medical History: D enies ID,DM,CVA,Lung disease,renal disease, Hypertension, Hepatitis c- cured. * Surgical History: c yst on neck and back removed . * Family History: F ather: . M other: alive 91 yrs, diagnosed with HTN (hypertension). no known hx of colon cancer. * Social History: T obacco Use: T obacco Control (Standard) T obacco use: C urrent smoker, H ow often do you smoke cigarettes? E very day, H ow many cigarettes a day do you smoke? 5 or less. D rugs/Alcohol: A lcohol Screen P oints: 1, Interpretation: Negative. M iscellaneous: M arital status: single. Occupation: unemployed/retired. * Medications: T aking Losartan Potassium , Taking amLODIPine Besylate 10 MG Tablet 1 tablet Orally Once a day , Discontinued Lisinopril-hydroCHLOROthiazide 10-12.5 MG Tablet 1 tablet Orally Once a day , Discontinued Colyte with Flavor Packs 240 GM Solution Reconstituted As directed Orally Over the specified time. , Medication List reviewed and reconciled with the patient * Allergies: N .K.D.A. Objective: * Vitals: W t:237lbs, Ht: 74.5 in, BMI:30.02Index, BP:111/77mm Hg, Wt-k.5. Assessment: * Assessment: 1. E ncounter for screening for malignant neoplasm of colon - Z12.11 Plan: * Treatment: * Preventive Medicine: Counseling: C are goal follow-up plan: A byron Normal BMI Follow-up G iving encouragement to exercise, B ID management provided Y es. * * The named appointment provid er may or may not be the originator of this progress note, and it is not deemed complete until electronically signed by the appointment provider. Sign off status: Pending * Provider: Juan Holly MD Date: 0 10/27/2024 Generated for Saurabh pruett/Shantel/Linaitting on: 0 11/10/2024 12:40 PM EDT
--- OUTSIDE RECORDS SUMMARY | 2024-11-10 12:40 | XMS_ITS | Patient Health Record ---
Author Organization [facility] Address [address] [place] [address] Care Team Providers Care Lead Assistant Manager Name Role Phone Samuel Paiz M.D. Primary Care Provider Un available Jhoan Holly Jr Unavailable [phone] Allergies No Known Allergies Reason For Referral Referring Provider First Name Samuel Referring Provider Last Name Chencho Referring Provider Speciality Internal M edicine Referred Organization [facility] Referred Provider Jhoan Holly Jr Referred Address [address] [place] [address], [address],[place], [place],[address], Referred Provider Specialty Gastroentero logy General Notes requested a massheal th referral from [facility] for visit with Dr. Holly on 10-27-2024 for a screening colon [phone] Referral Priority Routine Medications Medication SIG (Take, [...] do you smoke? 5 or les s Problems Problem Type SNOMED Code ICD Code Onset Dates Problem Status W/U Status Risk Notes Problem [id number] Colon cancer screening (V76.51) Active confirmed Vital Signs Blood pressure diastolic 77 mm Hg 10/27/2024 Height 74.5 in 10/27/2024 Blood pressure systolic 111 mm Hg 10/27/2024 Weight 237 lbs 10/27/2024 BMI 30.02 kg/m2 10/27/2024 Encounters Encounter Location Date Provider Diagnosis [facility] [address] [place] [address] 10/27/2024 Jhoan Holly Jr Encounter for screening for malignant neoplasm of colon Z12.11 Assessments Encounter Date Diagnosis (ICD Code) Assessment Notes Treatment Notes Treatment Clinical Notes Section Notes 10/27/2024 Encounter for screening for malignant neoplasm of colon (ICD-10 - Z12.11) Plan Of Treatment Next Appt Details Provider Name:Jhoan mead Jr, 12/30/2024 08:20:00 AM, [address] , [place], [place], [phone], Insurance Providers Payer Name Payer Address Payer Phone Subscriber Number Group Number Insured Name Patient Relationship to Insured Coverage Start Date Coverage End Date MEDICAID OF [employer] [address] JULIO CÉSAR QUINTERO [id number] DOMONIQUESAMARA Self - patient is the insured 3 Medical (General) History Medical History History ICD Code Denies [place],DM,CVA,Lung disease,renal dise ase hypertension hepatitis c- cured Surgical History Surgery Date(Month/Year) cyst on neck and back removed
--- OUTSIDE RECORDS SUMMARY | 2024-11-10 12:40 | XMS_ITS | Clinical Summary ---
Author Organization [employer] Address [address] [facility] [address] [place] [address] Care Team Providers Care Derrick Boat Lever Operator Name Role Phone Samuel Paiz MD Primary Care Provider [phone] Allergies Active Allergy Reactions Criticality Noted Date [...] Active Problems Problem Noted Date Diagnosed Date Hepatitis C virus infection cured after antiviral drug therapy 10/10/2024 Smoking addiction 08/04/2024 Chronic hepatitis C without hepatic coma 025 Primary insomnia 04/15/2018 Depressive disorder 03/21/2015 Hypertensive disorder 03/21/2015 Encounters Date Type Department Care Team Description 10/10/2024 1:30 PM EDT Telemedicine [facility] [address] Mary Riojas MD Chronic hepatitis C without hepatic coma (CMS/HCC) (Primary Dx); Hepatitis C virus infection cured after antiviral drug therapy 10/10/2024 Travel 10/10/2024 Results Follow-Up [facility] [place] [address] Mary Riojas MD Hepatitis C Antibody with Reflex to HCV, RNA, Quantitative, Real-Time PCR, Hepatitis C Viral RNA, Quantitative, Real-Time PCR 10/03/2024 Orders Only [facility] [place] [address] Mary Riojas MD 09/28/2024 Telephone [facility] [place] [address] Lorie Logan RN 09/26/2024 Orders Only [facility] [address] Lorie Logan, clinical cytogeneticist hepatitis C without hepatic coma (CMS/HCC) (Primary Dx) 09/26/2024 Telephone [facility] [place] [address] Lorie Logan, JE 09/22/2024 Telephone [facility] [address] [place] [address] Samuel Paiz MD 09/06/2024 10:00 AM EDT Office Visit [facility] [address] [place] [address] Samuel Paiz MD 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 I have janet daria 01/04/[address] you li [...] Upcoming Encounters Date Type Department Care Team ([facility] st Contact Info) Description 12/05/2024 10:45 AM EDT Office Visit [facility] [address] [place], [place] [phone] Samuel Paiz MD [address] [place] [address] Health Maintenance Due Date Last Done Comments [...] Procedure Name Priority Date/Time Associated Diagnosis Comments HEPATITIS C VIRAL RNA, QUANTITATIVE, REAL-TIME PCR Routine 10/03/2024 10:46 AM EDT HEPATITIS C AB W/REFL TO HCV RNA, QN, PCR Routine 10/03/2024 10:46 AM EDT EPIDERMAL / DERMAL SHAVING Routine 09/06/2024 12:38 PM EDT Neoplasm of uncertain behavior HIV 1/2 ANTIGEN/ANTIBODY, FOURTH GENERATION W/RFL Routine 04/04/2024 1:45 PM EST LIPID PANEL, STANDARD Routine 01/13/2024 10:43 AM EST Primary hypertension from Last 3 Months or Most Recently Relevant to Health Maintenance Results * Hepatitis C Viral RNA, Quantitative, Real-Time PCR (10/03/2024 10:46 AM EDT) Hepatitis C Viral Load <15 NOT DETECTED NOT DETECTED IU/mL [facility] HCV Log PCR <1.18 NOT DETECTED NOT DETECTED Log IU/mL [facility] Comment:For additional infor prema, please refer tohttp://education.Domainex/faq/IZM49l6(This link is being provided for informational/educational purposes only.)THIS TEST WAS PERFORMED AT:[facility] [place] [phone] HAYNES MD 10/03/2024 10:4 6 AM EDT 10/04/2024 12:06 PM EDT us Samuel Paiz MD LAB BLOOD ORDERABLES Final Result Performing Organization Address [facility] de Phone Number [facility] [address] [place] [phone] * (ABNORMAL) Hepatitis C Antibody with Reflex to HCV, RNA, Quantitative, Real- Time PCR (10/03/2024 10:46 AM EDT) Hepatitis C Antibody Reactive( A) Nonreactive [facility] Comment:Presumptive evidence of antibodies to HCV. 10/03/2024 10:4 6 AM EDT 10/03/2024 11:26 AM EDT Mary Riojas MD LAB BLOOD ORDERABLES Final R esult Performing Organization Address [facility] Co de Phone Number [facility] [address] [place] [phone] * Shave removal (09/06/2024 12:38 PM EDT) Samuel Pollard MD - 09/06/2024 12:38 PM EDT Samuel Paiz MD 09/06/2024 12:41 PM Shave removal Date/Time: 09/06/2024 12:38 PM Performed by: Samuel Paiz MD Authorized by: Samuel Paiz MD Consent: Consent obtained: Written Consent given by: Patient Risks discussed: Infection, pain and poor cosmetic result Alternatives discussed: Observation [place] protocol: Procedure explained and questions answered to [...] infiltration of Xylocaine 2% 0.5 mL, lot [id number], expiration date 04/04. Shave biopsy performed with a derma blade. Followed by electrocauterization. Procedure well-tolerated. A Band-Aid was applied after. Patient is to cleanse the area daily with hydrogen peroxide. us Samuel Paiz MD DERM PROCEDURE ORDERABLES F inal Result * HIV-1/2 Antigen and Antibodies, Fourth Generation, with Reflexes (04/04/2024 1:45 PM EST) HIV AB/AG Nonreactive Nonreactive [facility] Comment:HIV-1 p24 Ag and/or HIV-1/HIV-2 Ab not detected.A test result that is nonreactive does not exclude thepossibility of exposure to or infection with HIV-1 and/orHIV-2. Nonreactive results in this assay for individualswith prior exposure to HIV-1 and/or HIV-2 may be due toantigen and antibody levels that are below the limit ofdetection of this assay.The [employer] HIV Ag/Ab Combo assay result andsupplemental assay results should be interpreted inconjunction with the patient's clinical presentation,history and other laboratory results. If the results areinconsistent with clinical evidence, additional testing issuggested to confirm the result. 04/04/2024 1:45 PM EST 04/04/2024 4:20 PM EST Samuel Paiz MD LAB BLOOD ORDERABLES Final Result [facility] [address] [place] [phone] [phone] * (ABNORMAL) Lipid Panel, Standard (01/13/2024 10:43 AM EST) Triglycerides 131 <150 mg/dL [facility] Comment:Desirable Triglyceri de: less than 150 mg/dLBorderline High Triglyceride 150-199 mg/dLHigh Triglyceride: 200-499 mg/dLVery High Triglyceride: greater than or equal to 5OO mg/dL Cholesterol 169 <200 mg/dL [facility] Comment:Desirable Cholestero l: less than 200 mg/dLBorderline High Cholesterol: 200-239 mg/dLHigh Cholesterol: greater than 239 mg/dL LDL Cholesterol Calculated 111(H) <100 mg/dL [facility] Comment:Desirable LDL: less than 100 mg/dLNear Optimal/Above Optimal LDL: 110- 129 mg/dLBorderline High LDL: 130-159 mg/dLHigh LDL: 160-189 mg/dLVery High LDL: greater than or equal to 190 mg/dL HDL Cholesterol 32(L) >40 mg/dL [facility] Comment:Desirable HDL: great er than 40 mg/dL Note: This HDL assay may give artificially low results in patients with liver disease. Blood Venous blood specimen / Unknown 01/13/2024 10:43 AM EST 01/13/2024 2:18 PM EST Smauel Paiz MD LAB BLOOD ORDERABLES Final Result Performing Organization Address [facility]/ZIP Co de Phone Number [facility] [address] [place] [address] [phone] from Last 3 Months or Most Recently Relevant to Health Maintenance Insurance [facility] C3 Care Teams Derrick Boat Lever Operator Relationship Specialty Start Date End Date Samuel Paiz MD [address] [place] [phone] PCP - General Internal Medicine 12/02/12
--- NOTE | 2024-12-28 10:38 | HO.ANESPROP2 ---
Documented by User: Natalia Tobin NP 12/28/24 10:38 HPI - Anesthesia Eval Consult details Narrative: 64yo F for Colonoscopy PMFSH Active Problems Active Problems: All Active Problems Encounter for postoperative wound check (Acute) Sebaceous cyst (Acute) Past Medical History Medical History Hepatitis C test positive Insomnia Anxiety Depression HTN (hypertension) Family History Family history of problems with anesthesia: No Surgical History Surgical History Hx of excision of mass Hx of colonoscopy History of Problems with Anesthesia: No Social History Social History Are you a primary day care home provider to a significant other at home: No Do you presently have visiting nurse or other home services: No Patient Tobacco Use Status: Current someday Tobacco user Tobacco use type: Cigarette Cigarettes Per Day: 5 Smoked in Last 30 Days: Yes Patient Interested in Nicotine Replacement: No Have you been hit, kicked, punched, or otherwise hurt by someone within the past year? If so, by whom?: No Are you DNR?: No Advance Directives: No Advance Directives Information Provided: Yes Meds Allergies Allergy/AdvReac Type Severity Reaction Status Date / Time No Known Allergies Allergy Verified 12/30/24 06:30 Home Medications ?Medication ?Instructions ?Recorded ?Confirmed ?Last Taken ?Type bupropion HCl 150 mg 24 hr tablet, 150 mg PO DAILY 02/08/24 12/28/24 Unknown History extended release fluoxetine 20 mg capsule 20 mg PO DAILY 02/08/24 12/28/24 Unknown History amlodipine 10 mg tablet 10 mg PO DAILY 05/31/24 12/28/24 12/30/24 History ibuprofen 800 mg tablet (IBU) 800 mg PO TID 05/31/24 12/30/24 11/29/24 History losartan 100 mg tablet 100 mg PO DAILY 05/31/24 12/28/24 Unknown History Exam Height,Weight and Vital Signs: Height 6 ft 2.5 in Weight 107.501 kg Assessment and Plan Assessment Anesthesia Assessment: Chart Reviewed Final Anesthetic Review Family History of Problems with Anesthesia: No History of Problems with Anesthesia: No Documented by User: Kristina Graham MD 12/30/24 07:35 [facility] Past Medical History Medical History Hepatitis C test positive Insomnia Anxiety Depression HTN (hypertension) Surgical History Surgical History Hx of excision of mass Hx of colonoscopy Social History Social History Are you a primary day care home provider to a significant other at home: No Do you presently have visiting nurse or other home services: No Patient Tobacco Use Status: Current someday Tobacco user Tobacco use type: Cigarette Cigarettes Per Day: 5 Smoked in Last 30 Days: Yes Patient Interested in Nicotine Replacement: No Have you been hit, kicked, punched, or otherwise hurt by someone within the past year? If so, by whom?: No Are you DNR?: No Advance Directives: No Advance Directives Information Provided: Yes Meds Allergies Allergy/AdvReac Type Severity Reaction Status Date / Time No Known Allergies Allergy Verified 12/30/24 06:30 Home Medications ?Medication ?Instructions ?Recorded ?Confirmed ?Last Taken ?Type bupropion HCl 150 mg 24 hr tablet, 150 mg PO DAILY 02/08/24 12/28/24 Unknown History extended release fluoxetine 20 mg capsule 20 mg PO DAILY 02/08/24 12/28/24 Unknown History amlodipine 10 mg tablet 10 mg PO DAILY 05/31/24 12/28/24 12/30/24 History ibuprofen 800 mg tablet (IBU) 800 mg PO TID 05/31/24 12/30/24 11/29/24 History losartan 100 mg tablet 100 mg PO DAILY 05/31/24 12/28/24 Unknown History Exam Airway Mallampati Class: II TM Dist: >3cm Neck ROM: Full Loose/Missing/Broken Teeth: No Heart: RRR Lungs: CTA Assessment and Plan Assessment Anesthesia Assessment: Anesthesia Plan Discussed Final Anesthetic Review NPO: Yes ASA Class: II Final Preanesthetic Review: Meds/Allgs Chart Reviewed, Consent Obtained/Reviewed and Anes Risks/Benef Reviewed Patient Risk: Low Procedure Risk: Low Anesthetic Plan Anesthetic Plan: MAC: Disposition: Standard PACU
[2024-12-30 06:28] VITALS: BMI 30.5
[2024-12-30] MEDS: Lactated Ringers 1,000 ML 100 ML IVCONT (06:37)
[2024-12-30 06:43] VITALS: BP 141/86; PULSE 68; RESP 18; TEMP 36.7; O2SAT 96
--- NOTE | 2024-12-30 07:33 | MHC.SHP ---
Pre-Procedural Eval Section A - 24 Hr Update-Section A only Date of Service: 12/30/24 Section B - Complete if H&P > 30 days Chief Complaint: screening Details of Present Illness: see H&P no changes Relevant Family History (Specify if Yes): No Relevant Social History: None Present Medications: see Short Stay Collaborative assessment Medical History: No relevant PMH History of Previous Operations: No relevant previous surgery Allergies: Allergies Allergy/AdvReac Type Severity Reaction Status Date / Time No Known Allergies Allergy Verified 12/30/24 06:30 Review of Systems Sugical H&P ROS: Negative: Constitution, Cardiovascular, Respiratory, Neurological, Psychiatric, Hem-Onc, Allergic/Immunologic, Gastrointestinal, Genitourinary, Musculoskeletal, Integumentary, Endocrine and Eyes/Ears/Nose/Throat Exam Surgical H&P Exam: Normal: HEENT, Normal: Heart, Normal: Lungs, Normal: Extremities, Normal: Abdomen, Normal: Skin and Normal: Neurological Plan Diagnosis/Plan: Unchanged I have reviewed the history and physical and performed a pertinent physical examination on my patient. No changes have occurred unless specified. Time Spent With Patient Time: Total time managing care of this patient today ____ minutes.
[2024-12-30 08:18] VITALS: BP 115/72; PULSE 65; RESP 16; TEMP 36.1; O2SAT 96
--- NOTE | 2024-12-30 08:30 | OP_ITS ---
DATE OF SERVICE: 12/30/2024 SURGEON: Jhoan Holly MD INDICATIONS: Colon cancer screening. PREOPERATIVE DIAGNOSIS: POSTOPERATIVE DIAGNOSIS: PROCEDURE PERFORMED: Colonoscopy to the terminal ileum with biopsy. ESTIMATED BLOOD LOSS: COMPLICATIONS: ANESTHESIA: Monitored anesthesia care. ASSISTANTS: SPECIMENS: DESCRIPTION OF PROCEDURE: A history and physical performed. The risks and benefits of the procedure were explained to the patient. Informed consent was obtained. The patient was placed in the left lateral decubitus position. A digital rectal exam was performed and was found to be normal. The Olympus pediatric video colonoscope was introduced into the rectum and advanced to the cecum. The cecum was identified by transillumination, palpation, and identification of the ileocecal valve. Examination was performed. The scope was removed. He tolerated the procedure well and was returned to recovery area in stable condition. FINDINGS: The terminal ileum was examined and appeared normal. The visualized colonic mucosa was normal. The quality of the prep was good. Three polyps were identified and removed with biopsy forceps. All measured less than 5 mm. These were located in the cecum, right colon, and at 60 cm. No other polyps were identified. There was mild sigmoid diverticulosis. Retroflexed examination showed small internal hemorrhoids. IMPRESSION: Colon polyps. RECOMMENDATION: MD ARGENTINA Balderrama/KIMMY / [id number]
[2024-12-30 08:33] VITALS: BP 141/79; PULSE 77; RESP 16; TEMP 36.2; O2SAT 97
== END 2024-12-30 09:01 | disposition home or self-care (01) ==
PROVIDERS: PCP Internal Medicine; Visit Provider Internal Medicine Gastroenterology
PROC: 0DJD8ZZ Inspection of Lower Intestinal Tract, Via Natural or Artificial Opening Endoscopic (ICD-10-PCS; CPT 45378; principal; 2024-12-30 07:30)
DX: Z12.11 Encounter for screening for malignant neoplasm of colon (principal); D12.0 Benign neoplasm of cecum; D12.2 Benign neoplasm of ascending colon; D12.4 Benign neoplasm of descending colon; K57.30 Diverticulosis of large intestine without perforation or abscess without bleeding; K64.8 Other hemorrhoids; I10 Essential (primary) hypertension; Z86.19 Personal history of other infectious and parasitic diseases; Z79.899 Other long term (current) drug therapy; Z98.890 Other specified postprocedural states; F17.210 Nicotine dependence, cigarettes, uncomplicated
CPT/HCPCS: 45380; 88305; J2704